=== PATIENT | male | born 1945 | race Caucasian/White ===

== ENCOUNTER → 2016-07-15 | Outpatient (CLI) | payer MEDICARE, BC ==
[2016-07-15 08:05] LABS: Basophils % (A) 0 %; CH 32.5; CHCM 36.8; Eosinophils # (A) 0.2 k/uL (0-0.7); Eosinophils % (A) 4 %; HDW 2.63; HGB 15.1 gm/dL (13.0-17.5); Luc # (Auto) 0.13; Luc % (Auto) 2; Lymphocytes % (A) 18 %; MCH 31.1 pg (25.0-35.0); MCHC 35.1 g/dL (31.0-37.0); MCV 88.6 fL (80.0-100.0); Mean Platelet Volume 6.7; Monocytes # (A) 0.3 k/uL (0-1.0); Monocytes % (A) 6 %; Neutrophils # (A) 3.9 k/uL (1.3-7.7); Neutrophils % (A) 69 %; RBC 4.85 m/uL (4.30-5.90); RDW 12.7 % (11.5-15.5); WBC 5.6 k/uL (3.8-10.6); WBC (Perox) 5.68
[2016-07-15 08:21] LABS: ALT 25 U/L (21-72); AST 26 U/L (17-59); Alkaline Phosphatase 44 U/L (38-126); Anion Gap 9 mmol/L; Blood Urea Nitrogen 17 mg/dL (9-20); Carbon Dioxide 28 mmol/L (22-30); Chloride 99 mmol/L (98-107); Cholesterol 141 mg/dL (<200); Glucose 98 mg/dL (74-99); HDL Cholesterol 41 mg/dL (40-60); Non-African American GFR(MDRD) >60 (>60 ml/min/1.73 sqM); Sodium 136 mmol/L (137-145); Total Bilirubin 1.1 mg/dL (0.2-1.3); Total Protein 6.9 g/dL (6.3-8.2); Triglycerides 95 mg/dL (<150)
[2016-07-15 11:58] LABS: Hemoglobin A1C 5.6 % (4.2-6.1)
== END ==
LOC: LABWHC1 07:40
PROVIDERS: ATTEND Internal Medicine
DX: E78.5 Hyperlipidemia, unspecified (principal); I10 Essential (primary) hypertension
CPT/HCPCS: 36415; 80053; 80061; 83036; 84439; 84443; 85025

== ENCOUNTER → 2017-10-15 | Outpatient (CLI) | payer MEDICARE, BC ==
[2017-10-15 14:49] LABS: Potassium 4.4 mmol/L (3.5-5.1)
== END | disposition home or self-care (01) ==
LOC: LABWHC1 14:09
PROVIDERS: ATTEND Internal Medicine Interventional Cardiology
DX: I10 Essential (primary) hypertension (principal)
CPT/HCPCS: 36415; 80051; 82565; 84520

== ENCOUNTER → 2018-02-23 | Outpatient (CLI) | payer MEDICARE, BC ==
--- NOTE | 2018-02-23 14:29 | US ---
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 F/U previous GLAND SIZE: Right Lobe: 5.4 x 1.5 x 1.9 cm Overall Parenchyma: homogenous Left Lobe: 5.2 x 1.4 x 1.5 cm Overall Parenchyma: homogeneous Isthmus Thickness: 0.5 cm NODULES RIGHT: # of nodules measured on right: 2 1. 0.9 X 0.9 x 0.9 cm isoechoic solid nodule at the lower pole with poorly defined margins; This n odule is wider than tall and shows intranodular vascularity. Prior size: 0.9 x 0.7 x 0.9 cm 2. 0.7 X 0.4 x 0.7 cm isoechoic solid nodule at the mid pole with poorly defined margins; This nodu le is wider than tall and shows intranodular vascularity. Prior size: 0.6 x 0.4 x 0.6 cm LEFT: # of nodules measured on left: 1 1. 0.7 X 0.4 x 0.6 cm isoechoic solid nodule at the upper pole with poorly defined margins; This n odule is wider than tall and shows intranodular vascularity. Prior size: 0.8 x 0.4 x 0.6 cm ISTHMUS: # of nodules measured in the isthmus: 1 1. 0.6 X 0.3 x 0.5 cm isoechoic solid nodule with poorly defined margins; This nodule is wider than tall and shows intranodular vascularity. Prior size: 0.5 x 0.8 x 0.4 cm Bilateral neck scanned, no evidence of lymphadenopathy. Sub-centimeter nodules bilaterally as seen on prior exam. IMPRESSION: Multiple subcentimeter thyroid nodules are stable given differences in technique. Correlate for thyro megaly.
[2018-02-23 14:37] LABS: Basophils % (A) 0 %; Eosinophils # (A) 0.1 k/uL (0-0.7); Eosinophils % (A) 1 %; HCT 42.4 % (39.0-53.0); HGB 14.8 gm/dL (13.0-17.5); Lymphocytes % (A) 14 %; MCH 31.7 pg (25.0-35.0); MCV 90.6 fL (80.0-100.0); Mean Platelet Volume 6.4; Monocytes # (A) 0.4 k/uL (0-1.0); Monocytes % (A) 6 %; Neutrophils # (A) 5.3 k/uL (1.3-7.7); Neutrophils % (A) 77 %; Platelet Count 206 k/uL (150-450); RBC 4.68 m/uL (4.30-5.90); WBC 6.9 k/uL (3.8-10.6)
[2018-02-23 14:52] LABS: Albumin 3.9 g/dL (3.5-5.0); Calcium 9.3 mg/dL (8.4-10.2); Potassium 3.9 mmol/L (3.5-5.1); Total Bilirubin 0.5 mg/dL (0.2-1.3); Total Protein 6.5 g/dL (6.3-8.2)
== END | disposition home or self-care (01) ==
LOC: RADUSWWP 13:24
PROVIDERS: ATTEND Internal Medicine Endocrinology, Diabetes & Metabolism
DX: E04.2 Nontoxic multinodular goiter (principal); E29.1 Testicular hypofunction; Z01.812 Encounter for preprocedural laboratory examination
CPT/HCPCS: 36415; 76536; 80053; 84403; 84439; 84443; 85025

== ENCOUNTER → 2018-04-08 | Outpatient (CLI) | payer MEDICARE, BC ==
[2018-04-08 15:51] LABS: Anion Gap 9.1 mmol/L (4.00-12.00); Calcium 9.2 mg/dL (8.7-10.3); Carbon Dioxide 26.9 mmol/L (21.6-31.8); Potassium 4.2 mmol/L (3.5-5.5)
== END | disposition home or self-care (01) ==
LOC: LABWHC1 09:45
PROVIDERS: ATTEND Nurse Practitioner Adult Health
DX: I10 Essential (primary) hypertension (principal)
CPT/HCPCS: 36415; 80048

== ENCOUNTER → 2018-06-23 | Outpatient (CLI) | payer MEDICARE, BC ==
--- NOTE | 2018-06-23 11:44 | FL ---
EXAMINATION TYPE: FL barium swallow w video DATE OF EXAM: 06/23/2018 MODIFIED SWALLOW / DEGLUTITION STUDY CLINICAL HISTORY: Dysphagia. Patient feels food getting stuck. TECHNIQUE: Deglutition study is performed utilizing thin liquid barium, honey and nectar thick liqui d barium, barium thick applesauce, and barium coated cracker. A total of 1.38 minutes of fluoroscopic time was utilized during procedure. 266 fluoroscopic images were taken. COMPARISON: None. FINDINGS: The oral and pharyngeal phases show satisfactory initiation and propagation with all modali ties tested. Satisfactory mastication is seen with solid modalities tested. There is no evidence of penetration or aspiration with any modality tested. No significant pharyngeal residue was appreciate d. Note is made of moderate disc space narrowing and anterior spurs C4-C5 level causing mild mass effect along posterior wall of the proximal esophagus during swallowing without significant delay. There is advanced disc space narrowing possible some ossific fusion C5-C6 level. There is moderate to advance d disc space narrowing with moderate anterior spurring C6-C7 level incidentally noted. IMPRESSION: Normal deglutition study. Please refer to speech therapist notes for further details if necessary.
== END | disposition home or self-care (01) ==
LOC: RADFLMAIN 11:01
PROVIDERS: ATTEND Otolaryngology
DX: R13.10 Dysphagia, unspecified (principal)
CPT/HCPCS: 74230

== ENCOUNTER 2018-07-27 09:48 | Day surgery (SDC) | payer MEDICARE, BC ==
[2018-07-23 11:04] VITALS: BMI 27.5
[~2018-07-27 09:48] MED LIST: LACTATED RINGERS 1,000 ML IV SCH
[2018-07-27 10:15] VITALS: RESP 16; TEMP 98.3
[2018-07-27] MEDS ORDERED: LIDOCAINE 1% 20 ML VIAL (10MG/ML) FOR IV START INTRADERMA ONE (10:21)
[2018-07-27] MEDS ORDERED: LIDOCAINE 1% INJ 10MG/ML (20 ML MDV) ONE (11:06)
[2018-07-27] MEDS ORDERED: PROPOFOL 10 MG/ML 20 ML VIAL IV ONE (11:06)
--- NOTE | 2018-07-27 11:47 | P.PCN ---
Date of Procedure: 07/27/18 Procedure(s) Performed: Procedure: Esophagogastroduodenoscopy and biopsy. Preoperative diagnosis: Gastroesophageal reflux and swallowing issues. Postoperative diagnosis: 1. Sliding hiatal hernia with no definite esophagitis or complicated reflux disease. 2. Mild antral gastritis. 3. Biopsies obtained from the antrum and esophagus. Preparation and sedation: Was provided by anesthesia. Brief clinical history: The patient is 72-year-old male who has been having some issues with throat complaints and difficulties swallowing starting in . He had a modified barium swallow last month that showed narrowing of the disc space from C4 to C8 with anterior spurs at the level of C4-C5 with some mass effect on the esophagus but no delay in swallowing. The patient was not taking any medications for reflux for more than 2 years and started back in April. This evaluation is to assess for esophagitis, complicated reflux or other pathology. He had an upper endoscopy back in March 2015 because of reflux symptoms and intermittent dysphagia and throat complaints, and that showed small sliding hiatal hernia and mild antral gastritis. Biopsies from the esophagus back then showed focal features suggestive mild chronic esophagitis. Procedure: With the patient on his left lateral decubitus position and after informed consent and adequate sedation, I passed a Olympus-GIF H 190 video upper endoscope through the cricopharyngeus down the esophagus. GE junction was around 38-39 cm from the incisors and there was a small sliding hiatal hernia but no obvious esophagitis or complicated reflux disease. The endoscope was then passed into the stomach which was insufflated with air and inspected in detail including the retroflex view in the cardia. There was some mottling and erythema in the antrum but no ulcers or erosions. Pyloric channel did not show any ulcers. Duodenal bulb, post bulbar area and descending duodenum appeared within normal limits. I obtained biopsies from the antrum and esophagus then the endoscope was withdrawn. The patient tolerated the procedure well. Plan: The patient was reassured. Will await biopsy results. If he continues to be symptomatic and the biopsies do not give any additional insight into his problem, consideration can be given for a motility study and a 24-hour pH/impedance study to further evaluate for motility disorders or incompletely treated reflux disease. I'll keep you updated on his progress.
[2018-07-27 11:50] VITALS: BP 137/84; PULSE 59
== END 2018-07-27 12:45 | disposition home or self-care (01) ==
LOC: ORWHC2ENDO 09:48
DX: K29.50 Unspecified chronic gastritis without bleeding (principal); K21.9 Gastro-esophageal reflux disease without esophagitis; K44.9 Diaphragmatic hernia without obstruction or gangrene; R13.10 Dysphagia, unspecified; J45.909 Unspecified asthma, uncomplicated; I10 Essential (primary) hypertension; M19.90 Unspecified osteoarthritis, unspecified site; N40.0 Benign prostatic hyperplasia without lower urinary tract symptoms; Z85.828 Personal history of other malignant neoplasm of skin; E78.5 Hyperlipidemia, unspecified; Z79.82 Long term (current) use of aspirin; Z79.899 Other long term (current) drug therapy; Z88.8 Allergy status to other drugs, medicaments and biological substances
CPT/HCPCS: 88305; 43239; J2001; J2704

== ENCOUNTER → 2018-12-21 | Outpatient (CLI) | payer MEDICARE, BC ==
--- NOTE | 2018-12-21 13:06 | XR ---
Lumbar spine HISTORY: Spinal stenosis, back pain 3 views of the lumbar spine No comparisons There is multilevel spondylosis. Loss of disc height is present at intervertebral levels. Minimal ret rolisthesis grade 1 L5-S1, L3-4. Sclerosis present in the posterior elements of the lumbar spine. The re is elevation of lumbar vertebral body height and bone mineralization. Slight spinal curvature is n oted. Indeterminate focus of increased attenuation noted on the lateral exam could be related to gall stone. Vascular calcifications are present. IMPRESSION: Degenerative disc disease, facet arthropathy.
== END | disposition home or self-care (01) ==
LOC: RADXRMAIN 09:01
PROVIDERS: ATTEND Internal Medicine Geriatric Medicine
DX: M51.36 Other intervertebral disc degeneration, lumbar region (principal); M46.96 Unspecified inflammatory spondylopathy, lumbar region
CPT/HCPCS: 72100

== ENCOUNTER → 2019-03-08 | Outpatient (CLI) | payer MEDICARE, BC ==
--- NOTE | 2019-03-08 15:13 | US ---
EXAMINATION TYPE: US thyroid st tissue head/neck DATE OF EXAM: 03/08/2019 COMPARISON: US 2018 CLINICAL HISTORY: E04.2 Nontoxic multinodular goiter. Thyroid nodules, history of thyroid FNA GLAND SIZE: Right Lobe: 4.9 x 1.7 x 2.2 cm Overall Parenchyma: heterogenous Left Lobe: 4.9 x 1.5 x 1.5 cm Overall Parenchyma: heterogeneous Isthmus Thickness: 0.5 cm NODULES RIGHT: # of nodules measured on right: 2 1. 1.1 X 0.7 x 1.1 cm isoechoic solid nodule at the lower pole with poorly defined margins. This no dule is wider than tall and shows intranodular vascularity. Prior size: 0.9 x 0.9 x 0.9 cm 2. 0.7 X 0.5 x 0.7 cm hypoechoic solid nodule at the mid pole with poorly defined margins. This nodu le is wider than tall and shows intranodular vascularity. Prior size: 0.7 x 0.4 x 0.7 cm LEFT: # of nodules measured on left: 1 1. 0.7 X 0.5 x 0.8 cm isoechoic mixed nodule at the upper pole with poorly defined margins. This no dule is wider than tall and shows intranodular vascularity. Prior size: 0.7 x 0.4 x 0.6 cm ISTHMUS: # of nodules measured in the isthmus: 0 1. nodule seen on previous exam not seen on today's study Bilateral neck scanned, no evidence of lymphadenopathy. IMPRESSION: Heterogeneous gland with bilateral nodules described above.
[2019-03-08 15:21] LABS: T4, Free (Free Thyroxine) 0.93 ng/dL (0.78-2.19)
== END | disposition home or self-care (01) ==
LOC: RADUSWWP 13:58
PROVIDERS: ATTEND Internal Medicine Endocrinology, Diabetes & Metabolism
DX: E04.2 Nontoxic multinodular goiter (principal); E29.1 Testicular hypofunction
CPT/HCPCS: 36415; 76536; 84403; 84439; 84443

== ENCOUNTER → 2019-04-20 | Outpatient (CLI) | payer MEDICARE ==
--- NOTE | 2019-04-20 15:59 | US ---
EXAMINATION TYPE: US kidneys/renal and bladder DATE OF EXAM: 04/20/2019 COMPARISON: NONE CLINICAL HISTORY: Hematuria R31.9. Hematuria EXAM MEASUREMENTS: Right Kidney: 12.4 x 6.4 x 4.8 cm Left Kidney: 11.2 x 5.2 x 4.8 cm Right Kidney: multiple cystic areas with largest measuring 3.6 x 3.2 x 3.3cm at the mid right renal sinus region. Left Kidney: Mildly dilated renal pelvis Bladder: wnl Bilateral Jets seen: yes IMPRESSION: 1. Right Renal cysts. 2. Mild prominence of the left renal pelvis. This may be an extrarenal pelvis.
== END | disposition home or self-care (01) ==
LOC: RADUSWWP 14:43
PROVIDERS: ATTEND Internal Medicine Geriatric Medicine
DX: N28.1 Cyst of kidney, acquired (principal)
CPT/HCPCS: 76770

== ENCOUNTER → 2019-05-11 | Outpatient (CLI) | payer MEDICARE ==
--- NOTE | 2019-05-11 10:52 | CT ---
EXAMINATION TYPE: CT abdomen wo/w con DATE OF EXAM: 05/11/2019 COMPARISON: Ultrasound 04/20/2019 HISTORY: 73-year-old male Right renal cyst TECHNIQUE: Contiguous axial scanning of the abdomen before and after administration of 100 ml Isovue 300 IV contrast. Delayed images through the kidneys and coronal/sagittal reconstructions performed. CT DLP: 1871 mGycm Automated exposure control for dose reduction was used. FINDINGS: Heart normal size without pericardial effusion. Extensive three-vessel coronary artery calcifications are present. Lung bases clear without pleural effusion. No focal liver lesion or biliary ductal dilatation. Portal venous system is patent. 2.0 cm gallstone. No abnormal gallbladder distention.. Adrenal glands, spleen, and pancreas appear within normal limits. Bilateral renal hypodensities are present. The largest on the right measures 3.4 cm compatible with a cyst. Additional right-sided renal cortical cysts are present measuring up to 1.8 cm. Some lesions a re very small and too small fractured CT characterization but also likely represent renal cortical cy sts. One particular lesion lateral lower pole left kidney measures 1.1 cm and shows attenuation of 66 Houn sfield units on the noncontrast study. No appreciable change in density on postcontrast series. A hem orrhagic cyst is suspected. Six-month follow-up CT can confirm stability. Symmetric excretion of cont rast from the kidneys. No dilated small bowel, free fluid, or free air. No mesenteric or retroperitoneal lymphadenopathy. Mild to moderate atherosclerotic calcifications infrarenal abdominal aorta without aneurysm. Normal appendix. Moderate stool burden. Redundant sigmoid colon. Left-sided colonic diverticulosis. N o pericolonic inflammatory change. Pelvis is not imaged. 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 Additional degenerative disc disease and fac et arthropathy mid to lower lumbar spine. IMPRESSION: 1. BILATERAL RENAL CORTICAL CYSTS MEASURING UP TO 3.4 CM ON THE RIGHT. MANY OF THE LESIONS ARE VERY S MALL AND TOO SMALL FOR ACCURATE CT CHARACTERIZATION AND ALSO LIKELY REPRESENT BENIGN RENAL CORTICAL C YSTS. 2. SIX-MONTH FOLLOW-UP CT IS RECOMMENDED FOR A 1.1 CM INDETERMINATE LESION LATERAL LOWER POLE LEFT KI DNEY, SUSPECTED HEMORRHAGIC CYST. 3. CAD, 2.0 CM GALLSTONE, AND SCATTERED LEFT-SIDED COLONIC DIVERTICULOSIS.
== END | disposition home or self-care (01) ==
LOC: RADCTMAIN 07:32
PROVIDERS: ATTEND Urology
DX: N28.1 Cyst of kidney, acquired (principal); K80.20 Calculus of gallbladder without cholecystitis without obstruction; K57.30 Diverticulosis of large intestine without perforation or abscess without bleeding; Z88.8 Allergy status to other drugs, medicaments and biological substances
CPT/HCPCS: 82565; 84520; 74170; 36415; Q9967 ×2

== ENCOUNTER → 2019-06-09 | Outpatient (CLI) | payer MEDICARE ==
--- NOTE | 2019-06-09 08:58 | US ---
EXAMINATION TYPE: US abdomen complete DATE OF EXAM: 06/09/2019 COMPARISON: NONE CLINICAL HISTORY: Gallstone of bile duct K80.51. recent CT showed GB stone, h/o renal cysts, patient has no symptoms EXAM MEASUREMENTS: Liver Length: 15.8 cm Gallbladder Wall: 0.2 cm CBD: 0.4 cm Spleen: 9.8 cm Right Kidney: 12.9 x 7.0 x 4.9 cm Left Kidney: 10.0 x 4.3 x 5.7 cm *overlying bowel gas limits exam Pancreas: not seen due to bowel gas Liver: intercostal imaging due to high placement within ribcage, wnl Gallbladder: 2.2cm mobile stone seen Evidence for sonographic Fisher's sign: no CBD: wnl Spleen: wnl Right Kidney: multiple cysts, largest = 3.9cm Left Kidney: wnl Upper IVC: wnl Abd Aorta: limited views due to bowel gas IMPRESSION: 1. Multiple right renal cysts. 2. Gallstone. 3. Limitation due to bowel gas.
== END | disposition home or self-care (01) ==
LOC: RADUSWWP 07:58
PROVIDERS: ATTEND Internal Medicine Geriatric Medicine
DX: N28.1 Cyst of kidney, acquired (principal); K80.20 Calculus of gallbladder without cholecystitis without obstruction
CPT/HCPCS: 76700

== ENCOUNTER → 2019-09-06 | Outpatient (CLI) | payer MEDICARE | END | disposition home or self-care (01) | LOC: LABWHC1 12:32 | PROVIDERS: ATTEND Surgery Plastic and Reconstructive Surgery | DX: Z11.59 Encounter for screening for other viral diseases (principal) | CPT/HCPCS: 87635 ==

== ENCOUNTER 2019-09-08 10:43 | Day surgery (SDC) | payer MEDICARE ==
[2019-09-06 13:48] VITALS: BMI 28.5
--- NOTE | 2019-09-07 22:09 | P.GSHP ---
History of Present Illness H&P Date: 09/08/19 CHIEF COMPLAINT: Cholecystitis HISTORY OF PRESENT ILLNESS: The patient is a 73-year-old male who presents with history of epigastric including right upper quadrant abdominal pain. He underwent diagnostic studies for the gallbladder. Separately his clinical picture was consistent with cholecystitis. Now he presents for surgical intervention. PAST MEDICAL HISTORY: Please see list PAST SURGICAL HISTORY: Please see list MEDICATIONS: Please see list ALLERGIES:Please see list SOCIAL HISTORY: Please see list FAMILY HISTORY: Pertinent for gallbladder disease REVIEW OF ORGAN SYSTEMS: CONSTITUTIONAL: No reports of fevers or chills. PHYSICAL EXAM: VITAL SIGNS: Afebrile vital signs stable GENERAL: Well-developed pleasant male in no acute distress. HEENT: No scleral icterus. Extraocular movements grossly intact. Moist buccal mucosa. NECK: Supple without lymphadenopathy. CHEST: Unlabored respirations. Equal bilateral excursions. CARDIOVASCULAR: Regular rate regular rhythm rhythm. Distal 2+ pulses. ABDOMEN: Soft, nondistended. Tender along the epigastrium and right upper quadrant. MUSCULOSKELETAL: No clubbing, cyanosis, or edema. NEURO : No focal or lateralizing signs. Cranial nerves II-12 within normal limits. PSYCH: Alert and oriented to person, place and time. SKIN: Well perfused. Good skin turgor. ASSESSMENT: 1. Epigastric and right upper quadrant abdominal pain 2. Chronic cholecystitis PLAN: 1. Will need a robotic cholecystectomy possible open. Benefits and risks were described. 2. Heparin for DVT prophylaxis 5000 units. 3. Antibiotic prophylaxis. Past Medical History Past Medical History: Asthma, Cancer, GERD/Reflux, Hyperlipidemia, Hypertension, Osteoarthritis (OA), Prostate Disorder, Skin Disorder Additional Past Medical History / Comment(s): hiatal hernia, THYROID NODULES., HX SKIN CANCER , rosacea, cyst on kidney, History of Any Multi-Drug Resistant Organisms: None Reported Past Surgical History: Orthopedic Surgery, Prostate Surgery Additional Past Surgical History / Comment(s): TURP, colonoscopy , EGD., arthroscopy rt knee, skin cancer removed from neck and face Past Anesthesia/Blood Transfusion Reactions: Motion Sickness Smoking Status: Never smoker - Past Family History Mother Family Medical History: No Reported History Medications and Allergies Home Medications Medication Instructions Recorded Confirmed Type Aspirin 81 mg PO DAILY 03/20/15 09/06/19 History Vit A/Vit C/Vit E/Zinc/Copper 1 cap PO BID 03/20/15 09/06/19 History [ICAPS SOFTGEL] Atorvastatin Calcium [Lipitor] 10 mg PO HS 04/30/18 09/06/19 History Cholecalciferol (Vitamin D3) 2,000 unit PO HS 04/30/18 09/06/19 History [Vitamin D3] Docusate [Colace] 100 mg PO BID PRN 04/30/18 09/06/19 History Losartan/Hydrochlorothiazide 1 tab PO DAILY 04/30/18 09/06/19 History [Losartan-Hctz 100-25 mg Tab] Spironolactone 25 mg PO DAILY 04/30/18 09/06/19 History Ubidecarenone [Co Q-10] 100 mg PO DAILY 04/30/18 09/06/19 History ALPRAZolam [Xanax] 0.25 mg PO DAILY PRN 07/23/18 09/06/19 History Albuterol Sulfate [Proair Hfa] 1 - 2 puff INHALATION Q6HR PRN 07/23/18 09/06/19 History L.acidoph,Paracasei, B.lactis 1 each PO HS 07/23/18 09/06/19 History [Probiotic] Montelukast [Singulair] 10 mg PO DAILY 07/23/18 09/06/19 History Olopatadine HCl 1 applic BOTH EYES DAILY 07/23/18 09/06/19 History Omeprazole [PriLOSEC] 20 mg PO BID PRN 07/23/18 09/06/19 History Polyethylene Glycol 3350 [Miralax] 17 gm PO DAILY 09/06/19 09/06/19 History Allergies Allergy/AdvReac Type Severity Reaction Status Date / Time amlodipine besylate Allergy Rash/Hives Verified 09/06/19 13:33 [From Norvasc] hydralazine AdvReac Unknown Rash/Hives, Verified 09/06/19 13:33 Upset Stomach
[~2019-09-08 10:43] MED LIST changes: +ACETAMINOPHEN TAB 500 MG TAB PO STA; +DEXAMETHASONE SOD PHOSPHATE 10 MG/ML 1 ML VIAL IV ONE; +GABAPENTIN 300 MG CAP PO STA; +HEPARIN SODIUM,PORCINE 5,000 UNIT/ML 1 ML VIAL SQ ONE; +HYDROmorphone 0.5 MG/0.5 ML SYRINGE IVP PRN; +INDOCYANINE GREEN 25 MG VIAL IV STA; +ONDANSETRON 4 MG/2 ML VIAL IVP ONE; +SCOPOLAMINE 1.5MG/72HR PATCH TRANSDERM ONE; +TAMSULOSIN 0.4 MG CAP.ER.24H PO STA
[2019-09-08 11:50] LABS: Basophils % (A) 0 %; Eosinophils # (A) 0.1 k/uL (0-0.7); Eosinophils % (A) 3 %; HCT 42.8 % (39.0-53.0); HGB 14.9 gm/dL (13.0-17.5); Lymphocytes # (A) 1.1 k/uL (1.0-4.8); Lymphocytes % (A) 21 %; MCH 31.6 pg (25.0-35.0); MCHC 34.9 g/dL (31.0-37.0); MCV 90.5 fL (80.0-100.0); Monocytes # (A) 0.3 k/uL (0-1.0); Monocytes % (A) 6 %; Neutrophils # (A) 3.7 k/uL (1.3-7.7); Neutrophils % (A) 68 %; Platelet Count 238 k/uL (150-450); RBC 4.73 m/uL (4.30-5.90); RDW 12.4 % (11.5-15.5); WBC 5.4 k/uL (3.8-10.6)
[2019-09-08 12:09] LABS: ALT 16 U/L (4-49); AST 30 U/L (17-59); African American GFR (CKD) >90 (>60 ml/min/1.73 sqM); Albumin 4.3 g/dL (3.5-5.0); Alkaline Phosphatase 53 U/L (38-126); Anion Gap 9 mmol/L; Blood Urea Nitrogen 17 mg/dL (9-20); Calcium 9.3 mg/dL (8.4-10.2); Carbon Dioxide 26 mmol/L (22-30); Chloride 99 mmol/L (98-107); Glucose 100 mg/dL (74-99); Non-African American GFR(CKD) 84 (>60 ml/min/1.73 sqM); Potassium 4.4 mmol/L (3.5-5.1); Sodium 134 mmol/L (137-145); Total Protein 7.2 g/dL (6.3-8.2)
[2019-09-08] MEDS ORDERED: MIDAZOLAM 2 MG/2 ML VIAL IV ONE (12:59)
--- NOTE | 2019-09-08 13:13 | P.HPADDEND ---
H&P Addendum H&P Addendum Date: 09/08/19 Benefits and risks described for robotic cholecystectomy. Patient has history of gallstones
[2019-09-08] MEDS ORDERED: LIDOCAINE 1%-EPI 1:100,000 20 ML VIAL SQ ONE ×2 (14:46→15:16)
[2019-09-08] MEDS ORDERED: GLYCOPYRROLATE 0.2 MG/ML 2 ML VIAL ONE (14:53)
[2019-09-08] MEDS ORDERED: LIDOCAINE 1% INJ 10MG/ML (20 ML MDV) ONE (14:53)
[2019-09-08] MEDS ORDERED: NEOSTIGMINE 1 MG/ML 10 ML VIAL ONE (14:53)
[2019-09-08] MEDS ORDERED: SUCCINYLCHOLINE CHLORIDE 100 MG/5 ML SYR IV ONE (14:53)
[2019-09-08] MEDS ORDERED: ROCURONIUM BROMIDE 10 MG/ML 5 ML VIAL IV ONE (14:53)
[2019-09-08] MEDS ORDERED: fentaNYL (PF) 50 MCG/ML 2 ML AMP ONE (14:53)
[2019-09-08] MEDS ORDERED: ePHEDrine SULFATE/0.9% NACL/PF 50 MG/5 ML SYRINGE IV ONE (14:53)
[2019-09-08] MEDS ORDERED: MIDAZOLAM 2 MG/2 ML VIAL ONE (14:53)
[2019-09-08] MEDS ORDERED: PROPOFOL 10 MG/ML 20 ML VIAL IV ONE (14:53)
[2019-09-08] MEDS: LACTATED RINGERS 1,000 ML IV ONE ×2 (15:34→17:00)
--- NOTE | 2019-09-08 16:04 | P.OP ---
Date of Procedure: 09/08/19 Description of Procedure: SURGEON: ELYSSA CHAPMAN MD PREOPERATIVE DIAGNOSES: 1. Symptomatic gallstones 2. Hypertensive heart disease with heart failure 3. Obstructive uropathy 4. Gastroesophageal reflux disease 5. Asthma 6. Hyperlipidemia POSTOPERATIVE DIAGNOSES: 1. Symptomatic gallstones 2. Hypertensive heart disease with heart failure 3. Obstructive uropathy 4. Gastroesophageal reflux disease 5. Asthma 6. Hyperlipidemia OPERATION: Robotic-assisted da Lewis Xi laparoscopic cholecystectomy, multiport with FIREFLY ESTIMATED BLOOD LOSS: 5 mL. SPECIMENS REMOVED: Gallbladder. COMPLICATIONS: None. Operative Findings: 1. Large 1 cm gallstone with chronic cholecystitis INDICATIONS: The patient is a 73-year-old male who presents with gallstones. Surgical intervention with a laparoscopic cholecystectomy was described. Robotic assisted laparoscopic approach was described. Benefits and risks of the procedure including but not limited to bleeding, infection, injury to the biliary tree was described. Informed consent was obtained. DESCRIPTION OF PROCEDURE: Patient was brought to the operating room, placed in supine position. After general induction, the abdomen had been prepped and draped in standard sterile fashion. The robotic da Lewis XI system was primed. After a timeout protocol was performed, the patient had been prepped and draped in standard sterile fashion. The patient was injected with indocyanine green. A 5 mm 0 degrees laparoscopic trocar entry was performed along the left upper quadrant. The abdomen insufflated to 15 mmHg pressure which was tolerated well. Diagnostic laparoscopy demonstrated no injury to bowel viscera or mesentery. The liver surface was unremarkable. Next, two 8 mm robotic ports were placed along the right upper abdomen. The camera 8-mm port was maintained along the epigastrium. Another 8 mm port was placed along the left upper abdominal wall after exchanging the 5 mm port. Please note that the ports were placed at least 10 to 15 cm away from the target anatomy of the gallbladder. The robot was docked along the left lateral abdomen. The patient was repositioned in reverse Trendelenburg position. Using a grasper for arm 3, a grasper for arm 4, including hook cautery for arm 1, the robotic system was docked and primed as described. Instruments were interchanged by the hotel assistant general manager including hook cautery, Bovie cautery and clip appliers. I had sat at the console. The gallbladder fundus was retracted over the dome of the liver. Initial attention was brought to the infundibulum including cystic lymph node. Initial dissection was performed over the cystic lymph node at the infundibulum using hook cautery. The infundibulum was retracted laterally to expose the cystic duct away from the common bile duct. The cystic duct including the cystic artery were dissected free from its surrounding tissue. FIREFLY was used to identify the cystic artery and cystic structures. A critical view of safety was obtained. Large PLASTIC clips were used throughout the entire case. Using a clip electrician telephone, 2 clips were placed along the cystic duct away from the common bile duct. The cystic duct was divided between clips.. Next, the cystic artery was similarly clipped and cauterized. Electro-Bovie cautery was used to remove the gallbladder from the hepatic fossa. Hemostasis was checked and found to be adequate. The robot was undocked. I re-scrubbed into the case. Using a 10 mm Endo Catch bag via the left upper quadrant incision, the specimen was removed from the abdominal cavity. All pneumoperitoneum instruments were evacuated from the abdominal cavity. The incisions were reapproximated using 4-0 Monocryl in an interrupted subcuticular fashion. Fascial defects were less than 8 mm in size. Please note along the trocar sites, local anesthetic was placed as a field block prior to insertion of all instruments. Liquid glue was applied to the skin. At the end of the procedure needle, sponge, and instrument count had been verified correct by the surgical pathologist. The patient was transferred to postanesthesia care unit in stable condition. Intraoperative films were shared with the patient's family who were pleased with the level of care. Plan - Discharge Summary Discharge Rx Participant: No New Discharge Prescriptions: New Tamsulosin [Flomax] 0.4 mg PO DAILY #5 cap.er.24h Ibuprofen [Motrin] 600 mg PO Q8HR PRN #30 tab PRN Reason: Pain Acetaminophen Tab [Tylenol Tab] 1,000 mg PO Q6HR PRN #30 tablet Continue Vit A/Vit C/Vit E/Zinc/Copper [ICAPS SOFTGEL] 1 cap PO BID Aspirin 81 mg PO DAILY Docusate [Colace] 100 mg PO BID PRN PRN Reason: Constipation Losartan/Hydrochlorothiazide [Losartan-Hctz 100-25 mg Tab] 1 tab PO DAILY Spironolactone 25 mg PO DAILY Ubidecarenone [Co Q-10] 100 mg PO DAILY Cholecalciferol (Vitamin D3) [Vitamin D3] 2,000 unit PO HS Atorvastatin Calcium [Lipitor] 10 mg PO HS Montelukast [Singulair] 10 mg PO DAILY Albuterol Sulfate [Proair Hfa] 1 - 2 puff INHALATION Q6HR PRN PRN Reason: Shortness Of Breath ALPRAZolam [Xanax] 0.25 mg PO DAILY PRN PRN Reason: Anxiety Omeprazole [PriLOSEC] 20 mg PO BID PRN PRN Reason: gerd Olopatadine HCl 1 applic BOTH EYES DAILY L.acidoph,Paracasei, B.lactis [Probiotic] 1 each PO HS Polyethylene Glycol 3350 [Miralax] 17 gm PO DAILY Discharge Medication List Aspirin 81 mg PO DAILY 03/20/15 [History] Vit A/Vit C/Vit E/Zinc/Copper [ICAPS SOFTGEL] 1 cap PO BID 03/20/15 [History] Atorvastatin Calcium [Lipitor] 10 mg PO HS 04/30/18 [History] Cholecalciferol (Vitamin D3) [Vitamin D3] 2,000 unit PO HS 04/30/18 [History] Docusate [Colace] 100 mg PO BID PRN 04/30/18 [History] Losartan/Hydrochlorothiazide [Losartan-Hctz 100-25 mg Tab] 1 tab PO DAILY 04/30/18 [History] Spironolactone 25 mg PO DAILY 04/30/18 [History] Ubidecarenone [Co Q-10] 100 mg PO DAILY 04/30/18 [History] ALPRAZolam [Xanax] 0.25 mg PO DAILY PRN 07/23/18 [History] Albuterol Sulfate [Proair Hfa] 1 - 2 puff INHALATION Q6HR PRN 07/23/18 [History] L.acidoph,Paracasei, B.lactis [Probiotic] 1 each PO HS 07/23/18 [History] Montelukast [Singulair] 10 mg PO DAILY 07/23/18 [History] Olopatadine HCl 1 applic BOTH EYES DAILY 07/23/18 [History] Omeprazole [PriLOSEC] 20 mg PO BID PRN 07/23/18 [History] Polyethylene Glycol 3350 [Miralax] 17 gm PO DAILY 09/06/19 [History] Acetaminophen Tab [Tylenol Tab] 1,000 mg PO Q6HR PRN #30 tablet 09/08/19 [Rx] Ibuprofen [Motrin] 600 mg PO Q8HR PRN #30 tab 09/08/19 [Rx] Tamsulosin [Flomax] 0.4 mg PO DAILY #5 cap.er.24h 09/08/19 [Rx] Follow up Appointment(s)/Referral(s): Elyssa Chapman MD [STAFF PHYSICIAN] - 09/13/19 Patient Instructions/Handouts: *Surgery [facility] - (Anesthesia) Discharge Instructions Outpatient Surgery, Low Fat Diet (DC), Laparoscopic Cholecystectomy (DC) Activity/Diet/Wound Care/Special Instructions: No lifting over 10 pounds in until September 15August shower. No bath tub soaks until September 15 Diet as tolerated Use Tylenol and ibuprofen or Aleve scheduled for the next 24-48 hours for best pain relief. Use ice along incisions for the today to prevent swelling. IF UNABLE TO V OID IN [address] Discharge Disposition: HOME SELF-CARE
[2019-09-08 16:06] VITALS: TEMP 97.1
[2019-09-08 16:10] LABS: Glucose,Whole Blood 183 mg/dL (75-99)
[2019-09-08] MEDS ORDERED: ONDANSETRON 4 MG/2 ML VIAL IVP ONE (18:00)
[2019-09-08 18:55] VITALS: BP 114/67; PULSE 68; RESP 20
== END 2019-09-08 20:16 | disposition home or self-care (01) ==
LOC: OR 10:43
PROVIDERS: ATTEND Surgery Plastic and Reconstructive Surgery
DX: K80.10 Calculus of gallbladder with chronic cholecystitis without obstruction (principal); I11.0 Hypertensive heart disease with heart failure; I50.9 Heart failure, unspecified; N13.9 Obstructive and reflux uropathy, unspecified; K21.9 Gastro-esophageal reflux disease without esophagitis; J45.909 Unspecified asthma, uncomplicated; E78.2 Mixed hyperlipidemia; I25.10 Atherosclerotic heart disease of native coronary artery without angina pectoris; R01.1 Cardiac murmur, unspecified; M19.90 Unspecified osteoarthritis, unspecified site; Z90.79 Acquired absence of other genital organ(s); L71.9 Rosacea, unspecified; K44.9 Diaphragmatic hernia without obstruction or gangrene; E04.1 Nontoxic single thyroid nodule; N28.1 Cyst of kidney, acquired; K08.89 Other specified disorders of teeth and supporting structures; Z88.8 Allergy status to other drugs, medicaments and biological substances; Z79.899 Other long term (current) drug therapy; Z79.82 Long term (current) use of aspirin; Z79.52 Long term (current) use of systemic steroids; Z79.2 Long term (current) use of antibiotics; Z87.891 Personal history of nicotine dependence; Z85.828 Personal history of other malignant neoplasm of skin; Z98.890 Other specified postprocedural states; Z87.898 Personal history of other specified conditions; Z82.49 Family history of ischemic heart disease and other diseases of the circulatory system; Z83.79 Family history of other diseases of the digestive system
CPT/HCPCS: 88304; 80053; 85025; 47562; J2250; J1644; J1100; J2710; J0690; J2405; J2001; J3010; J0330; J2704; J1170

== ENCOUNTER 2019-09-12 22:52 | Emergency (ER) | payer MEDICARE ==
[2019-09-12 22:59] VITALS: RESP 18
--- NOTE | 2019-09-12 23:37 | ED ---
Abdominal Pain HPI - General Chief Complaint: Abdominal Pain Stated Complaint: abd pain Time Seen by Provider: 09/12/19 23:26 Source: EMS Mode of arrival: EMS Limitations: no limitations - History of Present Illness Initial Comments: This patient is a 73-year-old man who presents with low abdominal pain that he believes is due to constipation. He relates that he had a laparoscopic cholecystectomy on Thursday with Dr. Chapman and that he was not really having any abdominal pain following that. He states that he does have history of constipation. His last bowel movement was on Thursday and he states that it seemed to be less than adequate. He has been having cramping lower abdominal pain and urge to defecate but not able to pass any stool. He also is complaining of some perianal discomfort. There is no nausea or vomiting. No upper abdominal pain. No chest or back pain. No fever or chills. No leg pain or swelling MD Complaint: abdominal pain -: days(s) Location: diffuse, suprapubic Radiation: none Severity: moderate Quality: cramping, fullness Consistency: constant Improves With: nothing Worsens With: nothing Associated Symptoms: constipation - Related Data Home Medications Medication Instructions Recorded Confirmed Aspirin 81 mg PO DAILY 03/20/15 09/08/19 Vit A/Vit C/Vit E/Zinc/Copper 1 cap PO BID 03/20/15 09/08/19 [ICAPS SOFTGEL] Atorvastatin Calcium [Lipitor] 10 mg PO HS 04/30/18 09/08/19 Cholecalciferol (Vitamin D3) 2,000 unit PO HS 04/30/18 09/08/19 [Vitamin D3] Docusate [Colace] 100 mg PO BID PRN 04/30/18 09/08/19 Losartan/Hydrochlorothiazide 1 tab PO DAILY 04/30/18 09/08/19 [Losartan-Hctz 100-25 mg Tab] Spironolactone 25 mg PO DAILY 04/30/18 09/08/19 Ubidecarenone [Co Q-10] 100 mg PO DAILY 04/30/18 09/08/19 ALPRAZolam [Xanax] 0.25 mg PO DAILY PRN 07/23/18 09/08/19 Albuterol Sulfate [Proair Hfa] 1 - 2 puff INHALATION Q6HR PRN 07/23/18 09/08/19 L.acidoph,Paracasei, B.lactis 1 each PO HS 07/23/18 09/08/19 [Probiotic] Montelukast [Singulair] 10 mg PO DAILY 07/23/18 09/08/19 Olopatadine HCl 1 applic BOTH EYES DAILY 07/23/18 09/08/19 Omeprazole [PriLOSEC] 20 mg PO BID PRN 07/23/18 09/08/19 Polyethylene Glycol 3350 [Miralax] 17 gm PO DAILY 09/06/19 09/08/19 Previous Rx's Medication Instructions Recorded Acetaminophen Tab [Tylenol Tab] 1,000 mg PO Q6HR PRN #30 tablet 09/08/19 Ibuprofen [Motrin] 600 mg PO Q8HR PRN #30 tab 09/08/19 Tamsulosin [Flomax] 0.4 mg PO DAILY #5 cap.er.24h 09/08/19 Allergies Allergy/AdvReac Type Severity Reaction Status Date / Time amlodipine besylate Allergy Rash/Hives Verified 09/12/19 22:59 [From Norvas] hydralazine AdvReac Unknown Rash/Hives, Verified 09/12/19 22:59 Upset Stomach Review of Systems ROS Statement: Those systems with pertinent positive or pertinent negative responses have been documented in the HPI. ROS Other: All systems not noted in ROS Statement are negative. Constitutional: Denies: fever, chills Respiratory: Denies: cough, dyspnea Cardiovascular: Denies: chest pain, orthopnea Gastrointestinal: Reports: as per HPI, abdominal pain, constipation. Denies: nausea, vomiting, diarrhea, melena, hematochezia Genitourinary: Denies: dysuria, hematuria Musculoskeletal: Denies: back pain Skin: Denies: rash Neurological: Denies: headache, weakness, numbness Past Medical History Past Medical History: Asthma, Cancer, GERD/Reflux, Hyperlipidemia, Hypertension, Osteoarthritis (OA), Prostate Disorder, Skin Disorder Additional Past Medical History / Comment(s): hiatal hernia, THYROID NODULES., HX SKIN CANCER , rosacea, cyst on kidney, History of Any Multi-Drug Resistant Organisms: None Reported Past Surgical History: Cholecystectomy, Orthopedic Surgery, Prostate Surgery Additional Past Surgical History / Comment(s): TURP, colonoscopy , EGD., arthroscopy rt knee, skin cancer removed from neck and face Past Anesthesia/Blood Transfusion Reactions: Motion Sickness Past Psychological History: No Psychological Hx Reported Smoking Status: Never smoker Past Alcohol Use History: Rare Past Drug Use History: None Reported - Past Family History Mother Family Medical History: No Reported History General Exam Limitations: no limitations General appearance: alert, in no apparent distress Head exam: Present: atraumatic, normocephalic Eye exam: Present: normal appearance. Absent: scleral icterus, conjunctival injection ENT exam: Present: normal oropharynx Neck exam: Present: normal inspection Respiratory exam: Present: normal lung sounds bilaterally. Absent: respiratory distress, wheezes, rales, rhonchi, stridor Cardiovascular Exam: Present: regular rate, normal rhythm, normal heart sounds. Absent: systolic murmur, diastolic murmur, rubs, gallop GI/Abdominal exam: Present: soft, other (The patient's post surgical incisions have a normal appearance. They are clean dry and intact. No discharge. No abnormal erythema or warmth. No tenderness). Absent: distended, tenderness, guarding, rebound, rigid, mass, pulsatile mass Rectal exam: Present: normal inspection, normal rectal tone, fecal impaction. Absent: bloody stool, hemorrhoids, mass, tenderness Neurological exam: Present: alert Skin exam: Present: warm, dry, intact, normal color. Absent: rash Course Vital Signs 09/12/19 22:57 Temperature 99.3 F Pulse Rate 78 Respiratory 18 Rate Blood Pressure 132/70 O2 Sat by Pulse 96 Oximetry Medical Decision Making - Medical Decision Making Patient is administered soapsuds enema, passed a large amount of stool and did have relief of symptoms. Disposition Clinical Impression: Abdominal pain, Constipation Disposition: HOME SELF-CARE Condition: Good Instructions (If sedation given, give patient instructions): Constipation (ED), Abdominal Pain (ED) Is patient prescribed a controlled substance at d/c from ED?: No Referrals: Romulo Kurtz MD [Primary Care Provider] - 1-2 days
[2019-09-13 00:35] VITALS: BP 145/76; PULSE 80; TEMP 98.7
== END 2019-09-13 00:35 | disposition home or self-care (01) ==
LOC: EC 22:52
DX: K59.00 Constipation, unspecified (principal); I10 Essential (primary) hypertension; E78.5 Hyperlipidemia, unspecified; K21.9 Gastro-esophageal reflux disease without esophagitis; J45.909 Unspecified asthma, uncomplicated; Z79.82 Long term (current) use of aspirin; Z79.899 Other long term (current) drug therapy; Z88.8 Allergy status to other drugs, medicaments and biological substances; Z85.828 Personal history of other malignant neoplasm of skin; Z90.49 Acquired absence of other specified parts of digestive tract
CPT/HCPCS: 99284

== ENCOUNTER → 2019-11-01 | Outpatient (CLI) | payer MEDICARE ==
--- NOTE | 2019-11-01 15:28 | CT ---
EXAMINATION TYPE: CT abdomen w con DATE OF EXAM: 11/01/2019 COMPARISON: Prior CT 05/11/2019 HISTORY: Follow up renal cyst CT DLP: 1029.9 mGycm Automated exposure control for dose reduction was used. TECHNIQUE: Helical acquisition of images was performed from the lung bases through the top of iliac crest to include entire abdomen. CONTRAST: Performed without Oral Contrast and with IV Contrast, patient injected with 100 mL of Isovue 300. FINDINGS: Probable hiatal hernia. LUNG BASES: No significant abnormality is appreciated. LIVER/GB: Suspect interval cholecystectomy, otherwise unchanged. PANCREAS: No significant abnormality is seen. SPLEEN: No significant abnormality is seen. ADRENALS: No significant abnormality is seen. KIDNEYS: The exam is stable. The high density focus at the lower pole the left kidney shows a similar size and Hounsfield unit measurement. Multiple cystic foci are again noted within the right kidney. BOWEL: No significant abnormality is seen. LYMPH NODES: No significant abnormality is appreciated. OSSEOUS STRUCTURES: No significant abnormality is seen. FREE AIR: No Free Air visible ASCITES: None visible. RETROPERITONEAL ADENOPATHY: No Retroperitoneal Adenopathy visible. OTHER: IMPRESSION: KIDNEYS ARE STABLE.
== END | disposition home or self-care (01) ==
LOC: RADCTMAIN 11:49
PROVIDERS: ATTEND Urology
DX: N28.1 Cyst of kidney, acquired (principal); Z88.8 Allergy status to other drugs, medicaments and biological substances
CPT/HCPCS: 82565; 84520; 74160; 36415; Q9967

== ENCOUNTER → 2020-03-06 | Outpatient (CLI) | payer MEDICARE ==
[2020-03-06 15:43] LABS: T4, Free (Free Thyroxine) 0.92 ng/dL (0.78-2.19)
--- NOTE | 2020-03-06 17:28 | US ---
EXAMINATION TYPE: US thyroid st tissue head/neck DATE OF EXAM: 03/06/2020 COMPARISON: 03/08/2019 CLINICAL HISTORY: 74-year-old male E04.2 Nontoxic multinodular goiter. TECHNIQUE: Multiple sonographic images of the thyroid gland are obtained. FINDINGS: GLAND SIZE: Right Lobe: 4.3 x 1.9 x 1.6 cm. Overall Parenchyma: Homogeneous Left Lobe: 5.0 x 1.5 x 1.4 cm. Overall Parenchyma: homogeneous Isthmus Thickness: 4.4 mm. NODULES: Multiple on both sides, the majority are small and subcentimeter. Largest are measured below . RIGHT: # of nodules measured on right: 2 1. 0.9 X 0.6 x 0.7 cm hypoechoic solid nodule at the upper pole with poorly defined margins . This nodule is wider than tall and shows no intranodular vascularity. Prior size: 1.1 x 0.7 x 1.1 cm 2. 1.2 X 0.8 x 1.2 cm hypoechoic solid nodule at the lower pole with well-defined margins. This nod ule is wider than tall and shows intranodular vascularity. Prior size: 0.7 x 0.5 x 0.7 cm LEFT: # of nodules measured on left: 1 1. 0.6 X 0.4 x 0.4 cm hypoechoic solid nodule at the mid pole with well-defined margins . This nod ule is wider than tall and shows intranodular vascularity. Prior size: 0.7 x 0.5 x 0.8 cm ISTHMUS: # of nodules measured in the isthmus: 0 Heeler notes: Bilateral neck scanned, no evidence of lymphadenopathy. IMPRESSION: 1. The solid nodule at the right lower pole has increased in size at 12 x 12 mm (versus 7 x 7 mm, pre viously). Consider FNA. 2. The other measured nodules are unchanged.
== END | disposition home or self-care (01) ==
LOC: RADUSWWP 13:10
PROVIDERS: ATTEND Internal Medicine Endocrinology, Diabetes & Metabolism
DX: E04.2 Nontoxic multinodular goiter (principal); E29.1 Testicular hypofunction
CPT/HCPCS: 76536; 84403; 84439; 84443; 84480

== ENCOUNTER → 2020-11-06 | Outpatient (CLI) | payer MEDICARE ==
--- NOTE | 2020-11-06 18:36 | CT ---
EXAMINATION TYPE: CT abdomen w con DATE OF EXAM: 11/06/2020 COMPARISON: 11/01/2019 INDICATION: Renal cysts DLP: 1117.3 mGycm, Automated exposure control for dose reduction was used. CONTRAST: 100 mL of Isovue 300. Study performed with Oral Contrast TECHNIQUE: Axial images were obtained from above the diaphragm to the pubic rami in the axial plane a t 5 mm thick sections. Reconstructed images are reviewed on the computer in the coronal plane. FINDINGS: Limited CT sections are obtained the lung bases. The lung bases are clear. Coronary artery calcific ation is present. CT ABDOMEN: Liver: Normal Spleen: Normal Pancreas: Normal Adrenal glands: The adrenal glands are normal. Gallbladder: Surgically absent Kidneys: Multiple cortical renal cysts are present. This includes a 1.4 cm cyst at the superior pole right kidney measuring 15 Hounsfield units cortical renal cyst on the posterior lateral upper pole ri ght kidney measuring 1.6 cm and 10 Hounsfield units and 1.3 cm cyst on the lateral right mid kidney m easuring 1.3 cm and 16 Hounsfield units there is a posterior medial 3.1 cm cyst measuring 5 Hounsfiel d units on the right kidney. Inferior anterior right kidney is 1.5 cm cyst measuring 13 Hounsfield un its. On the left lateral inferior pole is a 1.3 cm cyst and 15 Hounsfield units. Cysts were present p reviously. No hydronephrosis is present. Delayed images were obtained through the kidneys, which re main unremarkable. Aorta: Vascular calcification is within the aorta. Inferior vena cava: Normal. Diverticular changes are within loops of bowel. There are some loops of bowel lacking oral contrast o r incompletely distended limiting their evaluation. IMPRESSIONS: 1. Multiple stable bilateral cortical renal cysts, greater in number in the right kidney and on the left. Findings are unchanged.
== END | disposition home or self-care (01) ==
LOC: RADCTMAIN 06:45
PROVIDERS: ATTEND Urology
DX: N28.1 Cyst of kidney, acquired (principal)
CPT/HCPCS: 82565; 84520; 74160; 36415; Q9967

== ENCOUNTER → 2021-03-29 | Outpatient (CLI) | payer MEDICARE ==
--- NOTE | 2021-03-29 13:55 | US ---
EXAMINATION TYPE: US thyroid st tissue head/neck DATE OF EXAM: 03/29/2021 COMPARISON:03/06/2020 CLINICAL HISTORY: E04.2 Nontoxic multinodular goiter. Follow up on prior nodules GLAND SIZE: Right Lobe: 5.0 x 2.1 x 1.9 cm Overall Parenchyma: homogenous Left Lobe: 4.8 x 1.8 x 1.4 cm Overall Parenchyma: homogeneous Isthmus Thickness: 0.5 cm NODULES RIGHT: # of nodules measured on right: 2 1. 1.0 X 0.7 x 0.7 cm, upper lateral, spongiform, hypoechoic nodule, which is taller than wide, wit h lobulated or irregular margins, without echogenic foci. Prior size: 0.9 x 0.6 x 0.7 cm 2. 1.4 X 1.4 x 1.0 cm, lower lateral, mixed cystic and solid, hypoechoic nodule, which is taller th an wide, with lobulated or irregular margins, without echogenic foci. Prior size: 1.2 x 0.8 x 1.2 cm LEFT: # of nodules measured on left: 2 1. 0.6 X 0.5 x 0.3 cm, upper mid, spongiform, hypoechoic nodule, which is taller than wide, with il l-defined margins, without echogenic foci. Prior size: 0.6 x 0.4 x 0.4 cm 2. 0.2 X 0.3 x 0.2 cm, lower mid, cystic or almost completely cystic, hypoechoic nodule, which is taller than wide, with ill-defined margins, without echogenic foci. ISTHMUS: # of nodules measured in the isthmus: 1 1. 0.9 X 0.8 x 0.5 cm solid or almost completely solid, hypoechoic nodule, which is taller than wid e, with ill-defined margins, without echogenic foci. Bilateral neck scanned, no evidence of lymphadenopathy. Homogeneous normal-sized thyroid with bilateral stable small nodules. IMPRESSION: As above. No new greater than 1.0 cm suspicious nodules identified.
[2021-03-29 16:14] LABS: T4, Free (Free Thyroxine) 1.02 ng/dL (0.78-2.19)
== END | disposition home or self-care (01) ==
LOC: RADUSWWP 13:11
PROVIDERS: ATTEND Internal Medicine Endocrinology, Diabetes & Metabolism
DX: E04.2 Nontoxic multinodular goiter (principal); E29.1 Testicular hypofunction
CPT/HCPCS: 36415; 76536; 84403; 84439; 84443; 84481

== ENCOUNTER → 2021-09-12 | Outpatient (CLI) | payer MEDICARE ==
--- NOTE | 2021-09-12 23:03 | US ---
EXAMINATION TYPE: US thyroid st tissue head/neck DATE OF EXAM: 09/12/2021 COMPARISON: NONE CLINICAL HISTORY: E04.2 MULTINODULAR GOITER. GLAND SIZE: Right Lobe: 4.9 x 1.7 x 1.7 cm Overall Parenchyma: homogenous Left Lobe: 5.0 x 1.4 x 1.5 cm Overall Parenchyma: homogeneous Isthmus Thickness: 0.5 cm NODULES RIGHT: # of nodules measured on right: 1. 0.8 X 0.7 x 0.8 cm, upper , mixed cystic and solid, hypoechoic nodule, which is taller than wide , with ill-defined margins, without echogenic foci. Prior size: 1.0 x 0.7 x 0.7 cm 2. 1.2 X 1.0 x 1.2 cm, lower, mixed cystic and solid, hypoechoic nodule, which is wider than tall, with smooth margins, without echogenic foci. Prior size: 1.4 x 1.4 x 1.0 cm LEFT: # of nodules measured on left: 1 Subcentimeter cysts noted 1. 0.7 X 0.4 x 0.6 cm, upper, mixed cystic and solid, hypoechoic nodule, which is wider than tall, with ill-defined margins, without echogenic foci. Prior size: 0.6 x 0.5 x 0.3 cm ISTHMUS: # of nodules measured in the isthmus: 0 Bilateral neck scanned, no evidence of lymphadenopathy. Heterogeneous normal-sized thyroid with stable bilateral nodules. IMPRESSION: As above.
== END | disposition home or self-care (01) ==
LOC: RADUSWWP 09:10
PROVIDERS: ATTEND Internal Medicine Endocrinology, Diabetes & Metabolism
DX: E04.2 Nontoxic multinodular goiter (principal)
CPT/HCPCS: 76536

== ENCOUNTER → 2021-11-04 | Outpatient (CLI) | payer MEDICARE ==
--- NOTE | 2021-11-04 09:21 | XR ---
No sacral spine HISTORY: Spondylosis with myelopathy 6 views of lumbosacral spine Correlation to prior exam 12/21/2018 There is not a significant interval change. Hypertrophic spondylosis is present, there is a spinal cu rvature. Lumbar vertebral bodies show preserved height and bone mineralization. There is no evident s pondylolysis or change in alignment. Loss of disc height is present at intervertebral levels, there i s vacuum phenomenon noted at L4-5. Sclerosis in the posterior elements is consistent with facet arthr opathy. IMPRESSION: Degenerative disc disease, facet arthropathy, hypertrophic spondylosis
== END | disposition home or self-care (01) ==
LOC: RADXRMAIN 08:33
PROVIDERS: ATTEND Internal Medicine
DX: M51.37 Other intervertebral disc degeneration, lumbosacral region (principal); M47.817 Spondylosis without myelopathy or radiculopathy, lumbosacral region
CPT/HCPCS: 72110

== ENCOUNTER → 2022-01-13 | Outpatient (CLI) | payer MEDICARE ==
--- NOTE | 2022-01-13 13:37 | CT ---
EXAMINATION TYPE: CT abdomen wo/w con DATE OF EXAM: 01/13/2022 COMPARISON: Prior CT November 06, 2020 and older CTs HISTORY: Cyst of kidney CT DLP: 2508 mGycm Automated exposure control for dose reduction was used. TECHNIQUE: Helical acquisition of images was performed from the lung bases through the top of iliac crest to include entire abdomen. CONTRAST: Performed without Oral Contrast and with IV Contrast, patient injected with 80ml mL of Isovue 300. FINDINGS: LUNG BASES: No significant abnormality is appreciated. LIVER/GB: Gallbladder not seen and presumed surgically absent. No new biliary dilatation. PANCREAS: No significant abnormality is seen. SPLEEN: No significant abnormality is seen. ADRENALS: No significant abnormality is seen. KIDNEYS: No renal calculi on noncontrast CT. Postcontrast images show symmetric cortical uptake and e xcretion without hydronephrosis seen bilaterally. A few punctate hypodense subcentimeter lesions thro ughout the left kidney are too small to further characterize but presumably benign. There are larger simple appearing thin-walled cysts scattered throughout the right kidney with largest measuring 4.1 c m long axis lower pole level coronal image 77 series 8. No significant change from prior CTs. No conc erning solid masses identified. BOWEL: Stomach poorly distended and is thus suboptimally evaluated as oral contrast has passed throu gh stomach. No suspicious small or large bowel dilatation. Normal appendix from the cecum identified. LYMPH NODES: No significant abnormality is seen. OSSEOUS STRUCTURES: [id number] multilevel spurring of the thoracolumbar spine. Moderate to s evere disc space narrowing with vacuum disc phenomenon L3-L4 through the L5-S1 levels. FREE AIR: No free air is visualized. OTHER: Mild to moderate calcified plaque of the abdominal aorta extends into branch vessels IMPRESSION: Simple appearing thin-walled cysts more numerous and larger in size in the right kidney v ersus left kidney redemonstrated. No significant change from prior CTs. No concerning solid or [place] k 3 or greater cystic mass in either kidney identified.
== END | disposition home or self-care (01) ==
LOC: RADCTMAIN 10:54
PROVIDERS: ATTEND Urology
DX: N28.1 Cyst of kidney, acquired (principal)
CPT/HCPCS: 82565; 84520; 74170; Q9967

== ENCOUNTER → 2022-03-17 | Outpatient (CLI) | payer MEDICARE ==
--- NOTE | 2022-03-17 08:48 | US ---
EXAMINATION TYPE: US thyroid st tissue head/neck DATE OF EXAM: 03/17/2022 COMPARISON: CLINICAL HISTORY: E04.2 NONTOXIC MULTINODULAR GOITER. Follow up thyroid nodules GLAND SIZE: Right Lobe: 5.3 x 1.7 x 2.4 cm Overall Parenchyma: homogenous Left Lobe: 5.0 x 1.5 x 1.9 cm Overall Parenchyma: homogeneous Isthmus Thickness: 0.8 cm NODULES RIGHT: # of nodules measured on right: 2 1. 0.7 X 0.6 x 0.7 cm, upper lateral, mixed cystic and solid, hypoechoic nodule, which is taller th an wide, with smooth margins, without echogenic foci. Prior size: 0.8 x 0.7 x 0.8 cm 2. 1.5 X 1.5 x 1.2 cm, lower mid, mixed cystic and solid, hypoechoic nodule, which is wider than ta ll, with smooth margins, without echogenic foci. Prior size: 1.2 x 1.0 x 1.2 cm LEFT: # of nodules measured on left: 1 1. 0.5 X 0.6 x 0.6 cm, upper mid, mixed cystic and solid, hypoechoic nodule, which is wider than ta ll, with smooth margins, without echogenic foci. Prior size: 0.7 x 0.4 x 0.6 cm ISTHMUS: # of nodules measured in the isthmus: 1 1. 1.1 X 1.2 x 0.9 cm cystic or almost completely cystic, anechoic nodule, which is wider than tall , with smooth margins, without echogenic foci. Prior size: no prior Bilateral neck scanned, no evidence of lymphadenopathy. IMPRESSION: Glandular enlargement and heterogeneity with nonspecific bilateral nodularity which appears essential ly stable. Thyroid isthmus. Appropriate follow-up advised.
[2022-03-17 10:53] LABS: T4, Free (Free Thyroxine) 1.5 ng/dL (0.800-1.800)
== END | disposition home or self-care (01) ==
LOC: RADUSWWP 07:53
PROVIDERS: ATTEND Internal Medicine Endocrinology, Diabetes & Metabolism
DX: E04.9 Nontoxic goiter, unspecified (principal); E04.2 Nontoxic multinodular goiter
CPT/HCPCS: 76536; 84439; 84443

== ENCOUNTER 2022-05-04 23:54 | Inpatient (IN) | payer MEDICARE ==
--- NOTE | 2022-05-05 00:23 | ED ---
Weakness HPI - General Chief complaint: Weakness Stated complaint: Flu-like symptoms Time Seen by Provider: 05/05/22 00:10 Source: patient Mode of arrival: EMS - History of Present Illness Initial comments: This patient is 76-year-old man who presents with complaint that he is been feeling worse over the past few days. He states that he had been diagnosed with Covid on April he just finished the fifth they have backslid treatment yesterday but states he has not noticed any improvement, in fact is feeling worse. He has generalized weakness and fatigue. Denies focal weakness. He states his oral intake has been decreased. He has had some diarrhea, but has not noticed any blood or dark tarry stool The patient has occasional cough. He is currently denying dyspnea. MD Complaint: generalized weakness, lack of energy, difficulty walking -: days(s) Location: generalized Consistency: constant Improves with: none Worsens with: none Context: recent illness Associated Symptoms: denies other symptoms - Related Data Home Medications Medication Instructions Recorded Confirmed Aspirin 81 mg PO DAILY 03/20/15 05/05/22 Losartan/Hydrochlorothiazide 1 tab PO DAILY 04/30/18 05/05/22 [Losartan-Hctz 100-25 mg Tab] Spironolactone 25 mg PO DAILY 04/30/18 05/05/22 Ubidecarenone [Co Q-10] 100 mg PO HS 04/30/18 05/05/22 Albuterol Sulfate [Proair Hfa] 1 - 2 puff INHALATION RT-Q6H PRN 07/23/18 05/05/22 L.acidoph,Paracasei, B.lactis 1 cap PO DAILY 07/23/18 05/05/22 [Probiotic] Montelukast [Singulair] 10 mg PO DAILY PRN 07/23/18 05/05/22 Olopatadine HCl [Patanol 0.1%] 1 applic BOTH EYES DAILY 07/23/18 05/05/22 Omeprazole [PriLOSEC] 20 mg PO BID 07/23/18 05/05/22 polyethylene glycoL 3350 [Miralax] 17 gm PO DAILY 09/06/19 05/05/22 Ammonium Lactate Cream [Lac-Hydrin 1 applic TOPICAL BID 05/05/22 05/05/22 12% Cream] Cetirizine HCl [Zyrtec] 10 mg PO HS 05/05/22 05/05/22 Cholecalciferol [Vitamin D3 (25 50 mcg PO DAILY 05/05/22 05/05/22 Mcg = 1000 Iu)] Clindamycin Topical Soln 1 applic TOPICAL BID PRN 05/05/22 05/05/22 [Cleocin-T Topical Soln] Hydrocortisone Cream 1 applic TOPICAL BID PRN 05/05/22 05/05/22 [Hydrocortisone 2.5% Cream] Neuriva 100 mg PO DAILY 05/05/22 05/05/22 Rosuvastatin Calcium 5 mg PO HS 05/05/22 05/05/22 Vit C/E/Zn/Coppr/Lutein/Zeaxan 1 cap PO BID 05/05/22 05/05/22 [Preservision Areds 2 Softgel] carvediloL [Coreg] 6.25 mg PO BID 05/05/22 05/05/22 metroNIDAZOLE 0.75% CREAM 1 applic TOPICAL BID 05/05/22 05/05/22 [Metrocream 0.75%] Allergies Allergy/AdvReac Type Severity Reaction Status Date / Time amlodipine besylate Allergy Rash/Hives Verified 05/05/22 08:29 [From [facility]vas] hydralazine AdvReac Unknown Rash/Hives, Verified 05/05/22 08:29 Upset Stomach Review of Systems ROS Statement: Those systems with pertinent positive or pertinent negative responses have been documented in the HPI. ROS Other: All systems not noted in ROS Statement are negative. Constitutional: Reports: fever, chills, weakness Respiratory: Reports: cough Cardiovascular: Denies: chest pain, palpitations, edema, syncope Gastrointestinal: Reports: nausea, vomiting, diarrhea. Denies: abdominal pain Genitourinary: Denies: dysuria, hematuria Musculoskeletal: Denies: back pain Skin: Denies: rash Neurological: Reports: headache. Denies: weakness Past Medical History Past Medical History: Asthma, Cancer, GERD/Reflux, Hyperlipidemia, Hypertension, Osteoarthritis (OA), Prostate Disorder, Skin Disorder Additional Past Medical History / Comment(s): hiatal hernia, THYROID NODULES., HX SKIN CANCER , rosacea, cyst on kidney, History of Any Multi-Drug Resistant Organisms: None Reported Past Surgical History: Cholecystectomy, Orthopedic Surgery, Prostate Surgery Additional Past Surgical History / Comment(s): TURP, colonoscopy , EGD., arthroscopy rt knee, skin cancer removed from neck and face Past Anesthesia/Blood Transfusion Reactions: Motion Sickness Past Psychological History: No Psychological Hx Reported Smoking Status: Never smoker Past Alcohol Use History: Rare Past Drug Use History: None Reported - Past Family History Mother Family Medical History: No Reported History Father Family Medical History: CVA/TIA General Exam General appearance: alert, in no apparent distress Head exam: Present: atraumatic, normocephalic Eye exam: Present: normal appearance. Absent: scleral icterus, conjunctival injection Neck exam: Present: normal inspection Respiratory exam: Present: normal lung sounds bilaterally. Absent: respiratory distress, wheezes, rales, rhonchi, stridor Cardiovascular Exam: Present: regular rate, normal rhythm, normal heart sounds. Absent: systolic murmur, diastolic murmur, rubs, gallop GI/Abdominal exam: Present: soft. Absent: distended, tenderness, guarding, rebound, rigid Extremities exam: Present: normal inspection, normal capillary refill. Absent: pedal edema, calf tenderness Back exam: Present: normal inspection. Absent: CVA tenderness (R), CVA tenderness (L) Neurological exam: Present: alert Skin exam: Present: warm, dry, intact, normal color. Absent: rash Course Vital Signs 05/04/22 05/05/22 23:55 01:20 Temperature 97.7 F Pulse Rate 63 60 Respiratory 16 16 Rate Blood Pressure 160/93 147/93 O2 Sat by Pulse 98 98 Oximetry EKG Findings - EKG Results: EKG: interpreted by ERMD, sinus rhythm (Rate 63 bpm), normal axis, normal QRS, normal ST/T, no acute changes Medical Decision Making - Medical Decision Making Patient is 76-year-old man diagnosed with Covid last week. He did complete course of Paxlovid, and states that the cough seemed to improve however since finishing that he is feeling more severe weakness and fatigue. The workup here does reveal hyponatremia. We'll admit patient to replace sodium and to consider referral rehab placement should patient not be feeling much better. Was pt. sent in by a medical professional or institution? @ -no Did you speak to anyone other than the patient for history? @ -[No Did you review nursing and triage notes? @ -[agree Were old charts reviewed? @ -[yes Differential Diagnosis? @ -Differential Weakness: Hypoglycemia, shock, sepsis, hyponatremia, anemia, infection, PA, ETOH, adverse medicine reaction, overdose, stroke, this is not meant to be an all-inclusive list. EKG interpreted by me (3pts min.)? @ -[See chart X-rays interpreted by me (1pt min.)? @ -See chart CT interpreted by me (1pt min.)? @ - U/S interpreted by me (1pt. min.)? @ -[none] What testing was considered but not performed? (CT, X-rays, U/S, labs)? Why? @ [ What meds were considered but not given? Why? @ -[none] Did you discuss the management of the patient with other professionals? @ -[Admitting physician Did you reconcile home meds? @ -[Yes Was smoking cessation discussed for >3mins.? @ -[none] Was critical care preformed (if so, how long)? @ -[none] Were there social determinants of health that impacted care today? How? (Homeles sness, low income, unemployed, alcoholism, drug addiction, transportation, low edu. Level, literacy, decrease access to med. care, [facility], rehab)? @ -[No Was there de-escalation of care discussed even if they declined? (Discuss DNR or withdrawal of care, Hospice)? @ -[No What co-morbidities impacted this encounter? (DM, HTN, Smoking, COPD, CAD, Cancer, CVA, Hep., AIDS, mental health diagnosis, sleep apnea, morbid obesity)? @ -[None Was patient admitted / discharged? @ -[Admitted Undiagnosed new problem with uncertain prognosis? @ -[none] Drug Therapy requiring intensive monitoring for toxicity (Heparin, Nitro, Insulin, Cardizem)? @ -[none] Were any procedures done? @ -[none] Diagnosis/symptom? @ -[Acute hyponatremia Acute, or Chronic, or Acute on Chronic? @ -[Acute Uncomplicated (without systemic symptoms) or Complicated (systemic symptoms)? @ -[Uncomplicated Side effects of treatment? @ -[none] Exacerbation, Progression, or Severe Exacerbation] @ -[no] Poses a threat to life or bodily function? @ -[yes - Lab Data Result diagrams: 05/05/22 00:52 05/07/22 08:17 Lab Results 0105/05/22 05/05/22 Range/Units 00:52 00:52 00:52 WBC 5.3 (3.8-10.6) k/uL RBC 4.64 (4.30-5.90) m/uL Hgb 14.6 (13.0-17.5) gm/dL Hct 39.6 (39.0-53.0) % MCV 85.4 (80.0-100.0) fL MCH 31.4 (25.0-35.0) pg MCHC 36.8 (31.0-37.0) g/dL RDW 12.3 (11.5-15.5) % Plt Count 216 (150-450) k/uL MPV 6.7 Neutrophils % 69 % Lymphocytes % 18 % Monocytes % 8 % Eosinophils % 3 % Basophils % 0 % Neutrophils # 3.6 (1.3-7.7) k/uL Lymphocytes # 1.0 (1.0-4.8) k/uL Monocytes # 0.4 (0-1.0) k/uL Eosinophils # 0.2 (0-0.7) k/uL Basophils # 0.0 (0-0.2) k/uL Hyperchromasia Marked PT 10.4 (9.0-12.0) sec INR 1.0 (<1.2) APTT 23.7 (22.0-30.0) sec D-Dimer 0.28 (<0.60) mg/L FEU Sodium 116 L* (137-145) mmol/L Potassium 4.8 (3.5-5.1) mmol/L Chloride 86 L (98-107) mmol/L Carbon Dioxide 23 (22-30) mmol/L Anion Gap 7 mmol/L BUN 14 (9-20) mg/dL Creatinine 0.76 (0.66-1.25) mg/dL Est GFR (CKD-EPI)AfAm >90 (>60 ml/min/1.73 sqM) Est GFR (CKD-EPI)NonAf 88 (>60 ml/min/1.73 sqM) Glucose 117 H (74-99) mg/dL Plasma Lactic Acid Danny (0.7-2.0) mmol/L Calcium 8.7 (8.4-10.2) mg/dL Magnesium 1.5 L (1.6-2.3) mg/dL Total Bilirubin 0.8 (0.2-1.3) mg/dL AST 39 (17-59) U/L ALT 27 (4-49) U/L Alkaline Phosphatase 61 (38-126) U/L Troponin I (0.000-0.034) ng/mL NT-Pro-B Natriuret Pep pg/mL Total Protein 6.6 (6.3-8.2) g/dL Albumin 3.9 (3.5-5.0) g/dL 05/05/22 05/05/22 05/05/22 Range/Units 00:52 00:52 00:52 WBC (3.8-10.6) k/uL RBC (4.30-5.90) m/uL Hgb (13.0-17.5) gm/dL Hct (39.0-53.0) % MCV (80.0-100.0) fL MCH (25.0-35.0) pg MCHC (31.0-37.0) g/dL RDW (11.5-15.5) % Plt Count (150-450) k/uL MPV Neutrophils % % Lymphocytes % % Monocytes % % Eosinophils % % Basophils % % Neutrophils # (1.3-7.7) k/uL Lymphocytes # (1.0-4.8) k/uL Monocytes # (0-1.0) k/uL Eosinophils # (0-0.7) k/uL Basophils # (0-0.2) k/uL Hyperchromasia PT (9.0-12.0) sec INR (<1.2) APTT (22.0-30.0) sec D-Dimer (<0.60) mg/L FEU Sodium (137-145) mmol/L Potassium (3.5-5.1) mmol/L Chloride (98-107) mmol/L Carbon Dioxide (22-30) mmol/L Anion Gap mmol/L BUN (9-20) mg/dL Creatinine (0.66-1.25) mg/dL Est GFR (CKD-EPI)AfAm (>60 ml/min/1.73 sqM) Est GFR (CKD-EPI)NonAf (>60 ml/min/1.73 sqM) Glucose (74-99) mg/dL Plasma Lactic Acid Danny 0.7 (0.7-2.0) mmol/L Calcium (8.4-10.2) mg/dL Magnesium (1.6-2.3) mg/dL Total Bilirubin (0.2-1.3) mg/dL AST (17-59) U/L ALT (4-49) U/L Alkaline Phosphatase (38-126) U/L Troponin I <0.012 (0.000-0.034) ng/mL NT-Pro-B Natriuret Pep 27 pg/mL Total Protein (6.3-8.2) g/dL Albumin (3.5-5.0) g/dL Disposition Clinical Impression: Hyponatremia Disposition: ADMITTED IP TO THIS HOSP Condition: Fair Is patient prescribed a controlled substance at d/c from ED?: No
[2022-05-05 01:03] LABS: Basophils % (A) 0 %; Eosinophils # (A) 0.2 k/uL (0-0.7); Eosinophils % (A) 3 %; HCT 39.6 % (39.0-53.0); HGB 14.6 gm/dL (13.0-17.5); Hyperchromasia Marked; Lymphocytes % (A) 18 %; MCH 31.4 pg (25.0-35.0); MCHC 36.8 g/dL (31.0-37.0); MCV 85.4 fL (80.0-100.0); Mean Platelet Volume 6.7; Monocytes # (A) 0.4 k/uL (0-1.0); Monocytes % (A) 8 %; Neutrophils # (A) 3.6 k/uL (1.3-7.7); Neutrophils % (A) 69 %; Platelet Count 216 k/uL (150-450); RBC 4.64 m/uL (4.30-5.90); RDW 12.3 % (11.5-15.5); WBC 5.3 k/uL (3.8-10.6)
[2022-05-05 01:17] LABS: Partial Thromboplastin Time 23.7 sec (22.0-30.0); Prothrombin Time 10.4 sec (9.0-12.0)
--- NOTE | 2022-05-05 01:20 | XR ---
EXAMINATION TYPE: XR chest 2V DATE OF EXAM: 05/05/2022 COMPARISON: 04/30/2018 HISTORY: Weakness TECHNIQUE: 2 view FINDINGS: Heart is normal. No heart failure no confluent pneumonic infiltrate. Costophrenic angles ar e clear. No pleural effusion. Bony thorax is intact. IMPRESSION: No active cardiopulmonary disease. No change.
[2022-05-05 01:23] LABS: ALT 27 U/L (4-49); AST 39 U/L (17-59); African American GFR (CKD) >90 (>60 ml/min/1.73 sqM); Albumin 3.9 g/dL (3.5-5.0); Alkaline Phosphatase 61 U/L (38-126); Anion Gap 7 mmol/L; Blood Urea Nitrogen 14 mg/dL (9-20); Calcium 8.7 mg/dL (8.4-10.2); Carbon Dioxide 23 mmol/L (22-30); Chloride 86 mmol/L (98-107); Glucose 117 mg/dL (74-99); Magnesium 1.5 mg/dL (1.6-2.3); Non-African American GFR(CKD) 88 (>60 ml/min/1.73 sqM); Potassium 4.8 mmol/L (3.5-5.1); Total Bilirubin 0.8 mg/dL (0.2-1.3); Total Protein 6.6 g/dL (6.3-8.2)
[2022-05-05 01:40] LABS: Sodium 116 mmol/L (137-145)
[2022-05-05] MEDS ORDERED: SODIUM CHLORIDE 0.9% 1,000 ML IV STA (02:17)
[2022-05-05] MEDS ORDERED: SODIUM CHLORIDE 0.9% 1,000 ML IV ONE (02:17)
[2022-05-05] MEDS ORDERED: ACETAMINOPHEN TAB 325 MG TAB PO PRN (03:17)
[2022-05-05] MEDS ORDERED: NALOXONE 0.4 MG/ML 1 ML VIAL IV PRN (03:17)
[2022-05-05] MEDS ORDERED: ALBUTEROL HFA INHALER INHALATION PRN (08:41)
[2022-05-05] MEDS ORDERED: TRIAMCINOLONE 0.1% CREAM 80 GM TUBE TOPICAL PRN (08:41)
[2022-05-05] MEDS ORDERED: MONTELUKAST 10 MG TAB PO PRN (08:41)
[2022-05-05] MEDS ORDERED: NON FORMULARY DRUG (Clindamycin Topical Soln 1 APPLIC Ml) TOPICAL PRN (08:41)
[2022-05-05] MEDS: LOSARTAN 50 MG TAB PO SCH (09:08)
[2022-05-05] MEDS: carvediloL 6.25 MG TAB PO SCH ×2 (09:08→16:45)
[2022-05-05] MEDS: polyethylene glycoL 3350 17 GM POWD.PACK PO SCH (09:08)
[2022-05-05] MEDS: CHOLECALCIFEROL 25 MCG (1000 IU) TABLET PO SCH (09:08)
[2022-05-05] MEDS: LACTOBACILLUS ACIDOPH & BULGAR 1 EACH PACKET PO SCH (09:08)
[2022-05-05] MEDS: ENOXAPARIN 40 MG/0.4 ML SYRINGE SQ SCH (09:08)
[2022-05-05] MEDS: FAMOTIDINE 20 MG TAB PO SCH ×2 (09:08→21:01)
[2022-05-05] MEDS: ASPIRIN 81 MG PO SCH (09:08)
[2022-05-05] MEDS: PANTOPRAZOLE 40 MG TABLET PO SCH ×2 (09:09→16:45)
[2022-05-05] MEDS: VIT A,C & E-LUTEIN-MINERALS 1 EACH TAB PO SCH ×2 (11:16→21:01)
[2022-05-05] MEDS: KETOTIFEN 0.025% OPHTH DROPS 5 ML BTL BOTH EYES SCH (11:16)
[2022-05-05 11:37] LABS: African American GFR (CKD) >90 (>60 ml/min/1.73 sqM); Anion Gap 6 mmol/L; Blood Urea Nitrogen 11 mg/dL (9-20); Calcium 8.4 mg/dL (8.4-10.2); Carbon Dioxide 24 mmol/L (22-30); Chloride 89 mmol/L (98-107); Glucose 87 mg/dL (74-99); Non-African American GFR(CKD) 89 (>60 ml/min/1.73 sqM)
[2022-05-05 11:41] LABS: Sodium 119 mmol/L (137-145)
[2022-05-05] MEDS: MAGNESIUM SULFATE-D5W PMX 1 GM in DEXTROSE/WATER 1 100ML.BAG IVPB SCH ×2 (14:17→15:39)
--- NOTE | 2022-05-05 14:54 | P.HPIM ---
History of Present Illness H&P Date: 05/05/22 HISTORY OF PRESENT ILLNESS This is a 76 year old male with past medical history of hypertension, hyperlipidemia, diverticulitis, thyroid nodule, gastroesophageal reflux disease, mild persistent ALLERGIC asthma, benign prostatic hypertrophy vitamin D deficiency, constipation, ALLERGIC rhinitis, rosacea. Patient was diagnosed with Covid about 2 weeks ago and just finished course of Paxlovid. Unfortunately, patient has been feeling worse over the last couple of days especially yesterday. He complains of generalized weakness and fatigue, poor oral intake. He has occasional cough. No dyspnea. He has had some diarrhea but no blood in the stools. No nausea or vomiting. His initial blood pressure was 160/93 and heart rate 63. EKG was a sinus rhythm with no acute ST changes. CBC was unremarkable. Sodium came back surprisingly at 116. Potassium 4.8, chloride 86, CO2 23, BUN 14 and creatinine 0.76. Blood sugar 117. D-dimer 0.28. Liver function tests were normal. Lactic acid 0.7. Troponin negative. ProBNP 27.Coronavirus PCR positive. Chest x-ray reveals no acute cardiopulmonary disease. Patient was given 2 L of IV fluid in the emergency center and admitted to cardiac stepdown unit. REVIEW OF SYSTEMS Constitutional: No fever, no chills, no night sweats. No weight change. No weakness, fatigue or lethargy. No daytime sleepiness. EENT: No headache. No blurred vision or double vision, no loss of vision. No loss of Hearing, no ringing in the ears, no dizziness. No nasal drainage or congestion. No epistaxis. No sore throat. Lungs: No shortness of breath, cough, no sputum production. No wheezing. Cardiovascular: No chest pain, no lower extremity edema. No palpitations. No paroxysmal nocturnal dyspnea. No orthopnea. No lightheadedness or dizziness. No syncopal episodes. Abdominal: No abdominal pain. No nausea, vomiting. No diarrhea. No constipation. No bloody or tarry stools. No loss of appetite. Genitourinary: No dysuria, increased frequency, urgency. No urinary retention. Musculoskeletal: No myalgias. No muscle weakness, no gait dysfunction, no frequent falls. No back pain. No neck pain. Integumentary: No wounds, no lesions. No rash or pruritus. No unusual bruising. No change in hair or nails. Neurologic: No aphasia. No facial droop. No change in mentation. No head injury. No headache. No paralysis. No paresthesia. Psychiatric: No depression. No anxiety. No mood swings. Endocrine: No abnormal blood sugars. No weight change. No excessive sweating or thirst. No cold intolerance. MEDICAL HISTORY Hypertension Hyperlipidemia Diverticulitis Thyroid nodule Gastroesophageal reflux disease Mild persistent ALLERGIC asthma Benign prostatic hypertrophy Vitamin D deficiency Constipation ALLERGIC rhinitis Rosacea SURGICAL HISTORY TURP 2004 Basal cell carcinoma removed below right ear 2013 Right knee arthroscopically 2017 Cholecystectomy 2019 Colonoscopy 2011 Bronchoscopy 1999 Cystoscopy 2019 SOCIAL HISTORY No alcohol use, no active tobacco use, no marijuana use. FAMILY HISTORY Father at age 79 from myocardial infarction with history of diabetes and multiple CVA. Mother at age 84 from CHF. Patient has 6 sisters one from diabetes complications, one from old age at 90 with dementia, one from diabetes complications and throat cancer. 2 sisters living with no major medical problems. Patient has one son and one daughter with no major medical conditions. PHYSICAL EXAMINATION Gen: This is a 76 year old male, resting in bed and appears to be comfortable and in no acute distress. HEENT: Head is atraumatic, normocephalic. Pupils equal, round. Sclerae is anicteric. NECK: Supple. No JVD. No lymphadenopathy. No thyromegaly. LUNGS: Clear to auscultation. No wheezes or rhonchi. No intercostal retractions. HEART: Regular rate and rhythm. 2/6 systolic murmur at the left sternal border. ABDOMEN: Soft. Bowel sounds are present. No masses. No tenderness. EXTREMITIES: No pedal edema. No calf tenderness. NEUROLOGICAL: Patient is awake, alert and oriented x3. Cranial nerves 2 through 12 are grossly intact. Deep tendon reflexes 2+ and symmetrical ASSESSMENT AND PLAN 1. Hyponatremia. Obtain urine sodium, urine and serum osmolality 2. Covid 19 infection. Patient completed course of Paxlovid. 3. Diarrhea most likely contributing to low sodium. 4. Hypertension. Continue patient on Coreg 6.25 mg twice daily, losartan 100 mg daily. 5. Hyperlipidemia. Continue atorvastatin 10 mg at bedtime. 6. Gastroesophageal reflux disease. Continue famotidin. 7. Mild persistent asthma. Continue albuterol inhaler every 6 hours as needed, Singulair 10 mg daily, Claritin 10 g at bedtime. 8. Gastroesophageal reflux disease and GI prophylaxis. Protonix 40 mg twice daily. 9. Chronic constipation. Continue MiraLAX 17 g daily. 10. DVT prophylaxis. Lovenox 40 mg subcu daily. Patient will be admitted to the hospital for a minimum of 2 night stay. DISCHARGE PLAN Most likely return home. ET and OT consults added. Impression and plan of care have been directed as dictated by the signing physician. Elodia Lyon nurse practitioner acting as scribe for signing physician. Past Medical History Past Medical History: Asthma, Cancer, GERD/Reflux, Hyperlipidemia, Hypertension, Osteoarthritis (OA), Prostate Disorder, Skin Disorder Additional Past Medical History / Comment(s): hiatal hernia, THYROID NODULES., HX SKIN CANCER , rosacea, cyst on kidney, History of Any Multi-Drug Resistant Organisms: None Reported Past Surgical History: Cholecystectomy, Orthopedic Surgery, Prostate Surgery Additional Past Surgical History / Comment(s): TURP, colonoscopy , EGD., arthroscopy rt knee, skin cancer removed from neck and face Past Anesthesia/Blood Transfusion Reactions: Motion Sickness Past Psychological History: No Psychological Hx Reported Smoking Status: Never smoker Past Alcohol Use History: Rare Past Drug Use History: None Reported - Past Family History Father Family Medical History: CVA/TIA Mother Family Medical History: No Reported History Medications and Allergies Home Medications Medication Instructions Recorded Confirmed Type Aspirin 81 mg PO DAILY 03/20/15 05/05/22 History Losartan/Hydrochlorothiazide 1 tab PO DAILY 04/30/18 05/05/22 History [Losartan-Hctz 100-25 mg Tab] Spironolactone 25 mg PO DAILY 04/30/18 05/05/22 History Ubidecarenone [Co Q-10] 100 mg PO HS 04/30/18 05/05/22 History Albuterol Sulfate [Proair Hfa] 1 - 2 puff INHALATION RT-Q6H PRN 07/23/18 05/05/22 History L.acidoph,Paracasei, B.lactis 1 cap PO DAILY 07/23/18 05/05/22 History [Probiotic] Montelukast [Singulair] 10 mg PO DAILY PRN 07/23/18 05/05/22 History Olopatadine HCl [Patanol 0.1%] 1 applic BOTH EYES DAILY 07/23/18 05/05/22 History Omeprazole [PriLOSEC] 20 mg PO BID 07/23/18 05/05/22 History polyethylene glycoL 3350 [Miralax] 17 gm PO DAILY 09/06/19 05/05/22 History Ammonium Lactate Cream [Lac-Hydrin 1 applic TOPICAL BID 05/05/22 05/05/22 History 12% Cream] Cetirizine HCl [Zyrtec] 10 mg PO HS 05/05/22 05/05/22 History Cholecalciferol [Vitamin D3 (25 50 mcg PO DAILY 05/05/22 05/05/22 History Mcg = 1000 Iu)] Clindamycin Topical Soln 1 applic TOPICAL BID PRN 05/05/22 05/05/22 History [Cleocin-T Topical Soln] Hydrocortisone Cream 1 applic TOPICAL BID PRN 05/05/22 05/05/22 History [Hydrocortisone 2.5% Cream] Neuriva 100 mg PO DAILY 05/05/22 05/05/22 History Rosuvastatin Calcium 5 mg PO HS 05/05/22 05/05/22 History Vit C/E/Zn/Coppr/Lutein/Zeaxan 1 cap PO BID 05/05/22 05/05/22 History [Preservision Areds 2 Softgel] carvediloL [Coreg] 6.25 mg PO BID 05/05/22 05/05/22 History metroNIDAZOLE 0.75% CREAM 1 applic TOPICAL BID 05/05/22 05/05/22 History [Metrocream 0.75%] Allergies Allergy/AdvReac Type Severity Reaction Status Date / Time amlodipine besylate Allergy Rash/Hives Verified 05/05/22 08:29 [From [facility]] hydralazine AdvReac Unknown Rash/Hives, Verified 05/05/22 08:29 Upset Stomach Physical Exam Vitals: Vital Signs Temp Pulse Pulse Resp BP BP Pulse Ox 05/05/22 09:00 97 05/05/22 08:00 98.2 F 79 18 140/77 98 05/05/22 04:17 97.7 F 69 18 186/94 97 05/05/22 01:20 60 16 147/93 98 05/04/22 23:55 97.7 F 63 16 160/93 98 Intake and Output 05/04/22 05/05/22 05/05/22 22:59 06:59 14:59 Intake Total 540 240 Balance 540 240 Intake: Oral 540 240 Other: # Voids 2 Weight 92.986 kg Results CBC & Chem 7: 05/05/22 00:52 05/05/22 10:50 Labs: Abnormal Lab Results - Last 24 Hours (Table) 05/05/22 05/05/22 Range/Units 00:52 05:25 Sodium 116 L* (137-145) mmol/L Chloride 86 L (98-107) mmol/L Glucose 117 H (74-99) mg/dL Magnesium 1.5 L (1.6-2.3) mg/dL Coronavirus (PCR) Detected A (Not Detectd) Thrombosis Risk Factor Assmnt - Choose All That Apply Each Risk Factor Represents 3 Points: Age 75 years or older Thrombosis Risk Factor Assessment Total Risk Factor Score: 3 Thrombosis Risk Factor Assessment Level: Moderate Risk
[2022-05-05] MEDS: SODIUM CHLORIDE 0.9% 1,000 ML IV SCH (21:00)
[2022-05-05] MEDS: LORATADINE 10 MG TAB PO SCH (21:01)
[2022-05-05] MEDS: ATORVASTATIN 10 MG TAB PO SCH (21:01)
[2022-05-06] MEDS: PANTOPRAZOLE 40 MG TABLET PO SCH ×2 (06:34→17:23)
[2022-05-06] MEDS: carvediloL 6.25 MG TAB PO SCH ×2 (06:34→17:23)
[2022-05-06 07:50] LABS: African American GFR (CKD) >90 (>60 ml/min/1.73 sqM); Anion Gap 7 mmol/L; Blood Urea Nitrogen 12 mg/dL (9-20); Calcium 8.5 mg/dL (8.4-10.2); Carbon Dioxide 26 mmol/L (22-30); Chloride 89 mmol/L (98-107); Glucose 102 mg/dL (74-99); Magnesium 1.8 mg/dL (1.6-2.3); Non-African American GFR(CKD) 85 (>60 ml/min/1.73 sqM); Sodium 122 mmol/L (137-145)
[2022-05-06] MEDS: KETOTIFEN 0.025% OPHTH DROPS 5 ML BTL BOTH EYES SCH (09:34)
[2022-05-06] MEDS: LOSARTAN 50 MG TAB PO SCH (09:35)
[2022-05-06] MEDS: VIT A,C & E-LUTEIN-MINERALS 1 EACH TAB PO SCH ×2 (09:35→20:27)
[2022-05-06] MEDS: MONTELUKAST 10 MG TAB PO SCH (09:35)
[2022-05-06] MEDS: FAMOTIDINE 20 MG TAB PO SCH ×2 (09:35→20:26)
[2022-05-06] MEDS: polyethylene glycoL 3350 17 GM POWD.PACK PO SCH (09:36)
[2022-05-06] MEDS: CHOLECALCIFEROL 25 MCG (1000 IU) TABLET PO SCH (09:36)
[2022-05-06] MEDS: ENOXAPARIN 40 MG/0.4 ML SYRINGE SQ SCH (09:36)
[2022-05-06] MEDS: ASPIRIN 81 MG PO SCH (09:36)
[2022-05-06] MEDS: LACTOBACILLUS ACIDOPH & BULGAR 1 EACH PACKET PO SCH (09:36)
--- NOTE | 2022-05-06 13:19 | P.PN ---
Subjective Progress Note Date: 05/06/22 HISTORY OF PRESENT ILLNESS This is a 76 year old male with past medical history of hypertension, hyperlipidemia, diverticulitis, thyroid nodule, gastroesophageal reflux disease, mild persistent ALLERGIC asthma, benign prostatic hypertrophy vitamin D deficiency, constipation, ALLERGIC rhinitis, rosacea. Patient was diagnosed with Covid about 2 weeks ago and just finished course of Paxlovid. Unfortunately, patient has been feeling worse over the last couple of days especially yeste rday. He complains of generalized weakness and fatigue, poor oral intake. He has occasional cough. No dyspnea. He has had some diarrhea but no blood in the stools. No nausea or vomiting. His initial blood pressure was 160/93 and heart rate 63. EKG was a sinus rhythm with no acute ST changes. CBC was unremarkable. Sodium came back surprisingly at 116. Potassium 4.8, chloride 86, CO2 23, BUN 14 and creatinine 0.76. Blood sugar 117. D-dimer 0.28. Liver function tests were normal. Lactic acid 0.7. Troponin negative. ProBNP 27.Coronavirus PCR positive. Chest x-ray reveals no acute cardiopulmonary disease. Patient was given 2 L of IV fluid in the emergency center and admitted to cardiac stepdown unit. 05/06: Repeat sodium this morning is 122. Potassium 5.0, BUN 12 and creatinine 0.82. Magnesium 1.8. Serum osmolality 251. Urine sodium and osmolality have not been collected. Consult added for nephrology added. Patient has been afebrile, heart rate in the 60s and 70s, blood pressure 143/84. Pulse ox 98% on room air. 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 Consult for PT and OT in place. REVIEW OF SYSTEMS Constitutional: No fever, no chills, no night sweats. No weight change. No weakness, fatigue or lethargy. No daytime sleepiness. EENT: No headache. No blurred vision or double vision, no loss of vision. No loss of Hearing, no ringing in the ears, no dizziness. No nasal drainage or congestion. No epistaxis. No sore throat. Lungs: No shortness of breath, cough, no sputum production. No wheezing. Cardiovascular: No chest pain, no lower extremity edema. No palpitations. No paroxysmal nocturnal dyspnea. No orthopnea. No lightheadedness or dizziness. No syncopal episodes. Abdominal: No abdominal pain. No nausea, vomiting. No diarrhea. No constipation. No bloody or tarry stools. No loss of appetite. Genitourinary: No dysuria, increased frequency, urgency. No urinary retention. Musculoskeletal: No myalgias. No muscle weakness, no gait dysfunction, no frequent falls. No back pain. No neck pain. Integumentary: No wounds, no lesions. No rash or pruritus. No unusual bruising. No change in hair or nails. Neurologic: No aphasia. No facial droop. No change in mentation. No head injury. No headache. No paralysis. No paresthesia. Psychiatric: No depression. No anxiety. No mood swings. Endocrine: No abnormal blood sugars. No weight change. No excessive sweating or thirst. No cold intolerance. PHYSICAL EXAMINATION Gen: This is a 76 year old male, resting in bed and appears to be comfortable and in no acute distress. HEENT: Head is atraumatic, normocephalic. Pupils equal, round. Sclerae is anicteric. NECK: Supple. No JVD. No lymphadenopathy. No thyromegaly. LUNGS: Clear to auscultation. No wheezes or rhonchi. No intercostal retractions. HEART: Regular rate and rhythm. 2/6 systolic murmur at the left sternal border. ABDOMEN: Soft. Bowel sounds are present. No masses. No tenderness. EXTREMITIES: No pedal edema. No calf tenderness. NEUROLOGICAL: Patient is awake, alert and oriented x3. Cranial nerves 2 through 12 are grossly intact. Deep tendon reflexes 2+ and symmetrical ASSESSMENT AND PLAN 1. Hyponatremia. Obtain urine sodium and urine osmolality, and had nephrology consult. 2. Covid 19 infection. Patient completed course of Paxlovid. 3. Diarrhea most likely contributing to low sodium. 4. Hypertension. Continue patient on Coreg 6.25 mg twice daily, losartan 100 mg daily. 5. Hyperlipidemia. Continue atorvastatin 10 mg at bedtime. 6. Gastroesophageal reflux disease. Continue famotidin. 7. Mild persistent asthma. Continue albuterol inhaler every 6 hours as needed, Singulair 10 mg daily, Claritin 10 g at bedtime. 8. Gastroesophageal reflux disease and GI prophylaxis. Protonix 40 mg twice daily. 9. Chronic constipation. Continue MiraLAX 17 g daily. 10. DVT prophylaxis. Lovenox 40 mg subcu daily. DISCHARGE PLAN Most likely return home. PT and OT consults added. Impression and plan of care have been directed as dictated by the signing physician. Elodia Lyon nurse practitioner acting as scribe for signing physician. Objective - Vital Signs Vital signs: Vital Signs Temp 98.1 F 05/05/22 23:51 Pulse 68 05/06/22 04:00 Resp 18 05/06/22 04:00 BP 127/72 05/06/22 04:00 Pulse Ox 97 05/06/22 04:00 FiO2 Intake & Output 05/05/22 05/06/22 05/06/22 18:59 06:59 18:59 Intake Total 840 Output Total 500 200 Balance 340 -200 Intake: Oral 840 Output: Urine 500 200 Other: Voiding Method Toilet Toilet - Labs CBC & Chem 7: 05/05/22 00:52 05/06/22 06:34 Labs: Abnormal Lab Results - Last 24 Hours (Table) 05/05/22 05/05/22 Range/Units 10:50 10:50 Sodium 119 L* (137-145) mmol/L Chloride 89 L (98-107) mmol/L Osmolality 251 L (280-301) mosm/kg
[2022-05-06] MEDS ORDERED: FUROSEMIDE 10 MG/ML 2 ML VIAL IV STA (13:35)
[2022-05-06] MEDS: SODIUM CHLORIDE 0.9% 1,000 ML IV SCH (17:23)
[2022-05-06 17:58] LABS: African American GFR (CKD) >90 (>60 ml/min/1.73 sqM); Anion Gap 10 mmol/L; Blood Urea Nitrogen 16 mg/dL (9-20); Calcium 8.9 mg/dL (8.4-10.2); Carbon Dioxide 20 mmol/L (22-30); Chloride 91 mmol/L (98-107); Glucose 116 mg/dL (74-99); Non-African American GFR(CKD) 84 (>60 ml/min/1.73 sqM); Potassium 5.1 mmol/L (3.5-5.1); Sodium 121 mmol/L (137-145)
[2022-05-06] MEDS ORDERED: TOLVAPTAN 15 MG 1/2 TABLET PO ONE (18:11)
[2022-05-06] MEDS ORDERED: LACTULOSE 20 GM/30 ML CUP PO ONE (18:59)
[2022-05-06] MEDS: ATORVASTATIN 10 MG TAB PO SCH (20:27)
[2022-05-06] MEDS: LORATADINE 10 MG TAB PO SCH (20:27)
[2022-05-06 23:44] VITALS: RESP 16
[2022-05-07] MEDS: carvediloL 6.25 MG TAB PO SCH ×2 (06:26→18:13)
[2022-05-07] MEDS: PANTOPRAZOLE 40 MG TABLET PO SCH ×2 (06:26→18:13)
[2022-05-07] MEDS: CHOLECALCIFEROL 25 MCG (1000 IU) TABLET PO SCH (08:09)
[2022-05-07] MEDS: VIT A,C & E-LUTEIN-MINERALS 1 EACH TAB PO SCH ×2 (08:09→21:04)
[2022-05-07] MEDS: ASPIRIN 81 MG PO SCH (08:09)
[2022-05-07] MEDS: FAMOTIDINE 20 MG TAB PO SCH ×2 (08:09→21:04)
[2022-05-07] MEDS: ENOXAPARIN 40 MG/0.4 ML SYRINGE SQ SCH (08:09)
[2022-05-07] MEDS: polyethylene glycoL 3350 17 GM POWD.PACK PO SCH (08:09)
[2022-05-07] MEDS: MONTELUKAST 10 MG TAB PO SCH (08:09)
[2022-05-07] MEDS: LACTOBACILLUS ACIDOPH & BULGAR 1 EACH PACKET PO SCH (08:09)
[2022-05-07] MEDS: LOSARTAN 50 MG TAB PO SCH (08:09)
[2022-05-07] MEDS: KETOTIFEN 0.025% OPHTH DROPS 5 ML BTL BOTH EYES SCH (08:11)
[2022-05-07 08:55] LABS: African American GFR (CKD) 75 (>60 ml/min/1.73 sqM); Anion Gap 9 mmol/L; Blood Urea Nitrogen 21 mg/dL (9-20); Calcium 8.9 mg/dL (8.4-10.2); Carbon Dioxide 23 mmol/L (22-30); Chloride 93 mmol/L (98-107); Glucose 169 mg/dL (74-99); Magnesium 1.9 mg/dL (1.6-2.3); Non-African American GFR(CKD) 65 (>60 ml/min/1.73 sqM); Potassium 5.1 mmol/L (3.5-5.1); Sodium 125 mmol/L (137-145)
--- NOTE | 2022-05-07 12:25 | P.PN ---
Subjective Progress Note Date: 05/07/22 HISTORY OF PRESENT ILLNESS This is a 76 year old male with past medical history of hypertension, hyperlipidemia, diverticulitis, thyroid nodule, gastroesophageal reflux disease, mild persistent ALLERGIC asthma, benign prostatic hypertrophy vitamin D deficiency, constipation, ALLERGIC rhinitis, rosacea. Patient was diagnosed with Covid about 2 weeks ago and just finished course of Paxlovid. Unfortunately, patient has been feeling worse over the last couple of days especially yes terday. He complains of generalized weakness and fatigue, poor oral intake. He has occasional cough. No dyspnea. He has had some diarrhea but no blood in the stools. No nausea or vomiting. His initial blood pressure was 160/93 and heart rate 63. EKG was a sinus rhythm with no acute ST changes. CBC was unremarkable. Sodium came back surprisingly at 116. Potassium 4.8, chloride 86, CO2 23, BUN 14 and creatinine 0.76. Blood sugar 117. D-dimer 0.28. Liver function tests were normal. Lactic acid 0.7. Troponin negative. ProBNP 27.Coronavirus PCR positive. Chest x-ray reveals no acute cardiopulmonary disease. Patient was given 2 L of IV fluid in the emergency center and admitted to cardiac stepdown unit. 05/06: Repeat sodium this morning is 122. Potassium 5.0, BUN 12 and creatinine 0.82. Magnesium 1.8. Serum osmolality 251. Urine sodium and osmolality have not been collected. Consult added for nephrology added. Patient has been afebrile, heart rate in the 60s and 70s, blood pressure 143/84. Pulse ox 98% on room air. 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 Consult for PT and OT in place. 05/07/[address] Nunes today Patient is seen and evaluated in follow-up this morning nephrology on consult patient sodium slightly improved at 125 and was given a dose of Samsca along with IV Lasix yesterday recommending repeat labs. Patient is afebrile denies chest pain or shortness of breath. Patient is currently sitting up in his bed dressed expecting to go home today. Will need to discuss with nephrology about treatment plan and currently awaiting follow-up from today. Patient reports he has been battling his bowel habits for years and will have constipation and/or diarrhea. Patient denies diarrhea reports his last bowel movement was Thursday and denies feeling constipated at this time. Patient reports he is tolerating diet with no reports of nausea or vomiting noted. Patient was really looking forward to going home today. Nephrology consult pending. Labs reviewed: Sodium is 125, potassium 5.1, chloride 93, BUN 21, creatinine 1.09, magnesium 1.9, TSH 0.839 Review of systems: Constitutional: No reports of fatigue, fever, or chills Cardiovascular: No reports of chest pain or palpitations Respiratory: No reports of shortness of breath or cough GI: No reports of nausea, vomiting, or diarrhea, currently reporting no bowel movement since Thursday : No reports of dysuria or retention Neurovascular: No reports of weakness or numbness All medications have been reviewed Active Medications Acetaminophen (Acetaminophen Tab 325 Mg Tab) 650 mg PO Q6HR PRN PRN Reason: Mild Pain or Fever > 100.5 Albuterol Sulfate (Albuterol Hfa Inhaler) 2 puff INHALATION RT-Q6H PRN PRN Reason: Shortness Of Breath Aspirin (Aspirin 81 Mg) 81 mg PO DAILY [facility] Last Admin: 05/07/22 08:09 Dose: 81 mg Atorvastatin Calcium (Atorvastatin 10 Mg Tab) 10 mg PO HS [facility] Last Admin: 05/06/22 20:27 Dose: 10 mg Carvedilol (Carvedilol 6.25 Mg Tab) 6.25 mg PO AC-BID [facility] Last Admin: 05/07/22 06:26 Dose: 6.25 mg Cholecalciferol (Cholecalciferol 25 Mcg (1000 Iu) Tablet) 50 mcg PO DAILY [facility] Last Admin: 05/07/22 08:09 Dose: 50 mcg Enoxaparin Sodium (Enoxaparin 40 Mg/0.4 Ml Syringe) 40 mg SQ DAILY [facility] Last Admin: 05/07/22 08:09 Dose: 40 mg Famotidine (Famotidine 20 Mg Tab) 20 mg PO BID [facility] Last Admin: 05/07/22 08:09 Dose: 20 mg Ketotifen Fumarate (Ketotifen 0.025% Ophth Drops 5 Ml Btl) 1 drops BOTH EYES DAILY [facility] Last Admin: 05/07/22 08:11 Dose: 1 drops Lactobacillus Acidoph/Bulgaricus (Lactobacillus Acidoph & Bulgar 1 Each Packet) 1 each PO DAILY [facility] Last Admin: 05/07/22 08:09 Dose: 1 each Loratadine (Loratadine 10 Mg Tab) 10 mg PO HS [facility] Last Admin: 05/06/22 20:27 Dose: 10 mg Losartan Potassium (Losartan 50 Mg Tab) 100 mg PO DAILY [facility] Last Admin: 05/07/22 08:09 Dose: 100 mg Montelukast Sodium (Montelukast 10 Mg Tab) 10 mg PO DAILY [facility] Last Admin: 05/07/22 08:09 Dose: 10 mg Multivitamins/Minerals (Vit A,C & C-Whslxm-[place]jlu[place] 1 Each Tab) 1 each PO BID [facility] Last Admin: 05/07/22 08:09 Dose: 1 each Naloxone HCl (Naloxone 0.4 Mg/Ml 1 Ml Vial) 0.2 mg IV Q2M PRN PRN Reason: Opioid Reversal Pantoprazole Sodium (Pantoprazole 40 Mg Tablet) 40 mg PO AC-BID [facility] Last Admin: 05/07/22 06:26 Dose: 40 mg Polyethylene Glycol (Polyethylene Glycol 3350 17 Gm Powd.Pack) 17 gm PO DAILY [facility] Last Admin: 05/07/22 08:09 Dose: 17 gm Triamcinolone Acetonide (Triamcinolone 0.1% Cream 80 Gm Tube) 1 applic TOPICAL BID PRN PRN Reason: Rash PHYSICAL EXAMINATION: Gen: This is a 76 year old male, sitting up in bed dressed in his street clothes, appears to be comfortable and in no acute distress. HEENT: Head is atraumatic, normocephalic. Pupils equal, round. Sclerae is anicteric. NECK: Supple. No JVD. No lymphadenopathy. No thyromegaly. LUNGS: Clear to auscultation. No wheezes or rhonchi. No intercostal retractions. HEART: Regular rate and rhythm. S1, S2 are muffled ABDOMEN: Soft. Bowel sounds are present. No masses. No tenderness. EXTREMITIES: No pedal edema. No calf tenderness. NEUROLOGICAL: Patient is awake, alert and oriented x3. Cranial nerves 2 through 12 are grossly intact. No focal deficits noted ASSESSMENT: 1. Hyponatremia. Obtain urine sodium and urine osmolality, and had nephrology consult. 2. Covid 19 infection. Patient completed course of Paxlovid and took last dose on Thursday 3. Diarrhea most likely contributing to low sodium. 4. Hypertension. Continue patient on Coreg 6.25 mg twice daily, losartan 100 mg daily. 5. Hyperlipidemia. Continue atorvastatin 10 mg at bedtime. 6. Gastroesophageal reflux disease. Continue famotidine. 7. Mild persistent asthma. Continue albuterol inhaler every 6 hours as needed, Singulair 10 mg daily, Claritin 10 g at bedtime. 8. Gastroesophageal reflux disease and GI prophylaxis. Protonix 40 mg twice daily. 9. Chronic constipation. Continue MiraLAX 17 g daily. 10. DVT prophylaxis. Lovenox 40 mg subcu daily. PLAN: Recommend to continue with current medications and management with nephrology following. Patient is status post 1 dose of Samsca along with IV Lasix yesterday and sodium improved to 125 today Recommend monitoring strict intake and output and continue fluid restrictions Patient was seen and evaluated by PT/OT an independent with no weakness or gait dysfunction noted Encouraged oral intake Patient is anxious to go home and will discuss further with nephrology and appreciate input and recommendations The impression and plan of care has been dictated by Yanira Zimmerman, Nurse Practitioner as directed. MD Willow I have performed a history and examination and MDM of this patient, discussed the same with the dictator, and agree with the dictator's assessment and plan as written ,documented as a scribe. Based on total visit time, I have performed more than 50% of the visit. Objective - Vital Signs Vital signs: Vital Signs Temp 98.1 F 05/06/22 23:43 Pulse 73 05/07/22 08:27 Resp 16 05/07/22 08:27 BP 113/59 05/07/22 08:27 Pulse Ox 96 05/07/22 08:27 FiO2 Intake & Output 05/06/22 05/07/22 05/07/22 18:59 06:59 18:59 Intake Total 378 260 180 Balance 378 260 180 Intake: IV 20 10 Invasive Line 1 20 10 Oral 358 250 180 Other: Voiding Method Toilet Toilet # Voids 2 - Labs CBC & Chem 7: 05/05/22 00:52 05/07/22 08:17 Labs: Abnormal Lab Results - Last 24 Hours (Table) 05/06/22 05/07/22 Range/Units 17:33 08:17 Sodium 121 L 125 L (137-145) mmol/L Chloride 91 L 93 L (98-107) mmol/L Carbon Dioxide 20 L (22-30) mmol/L BUN 21 H (9-20) mg/dL Glucose 116 H 169 H (74-99) mg/dL
--- NOTE | 2022-05-07 12:29 | P.NPCON ---
History of Present Illness - Reason for Consult hyponatremia - History of Present Illness Reason for consultation: Hyponatremia History of present illness: The patient is a 76-year-old male seen in [facility] for hyponatremia. Patient came to the hospital on 05/05/2022 due to generally not feeling well. Patient states he was diagnosed with COVID-19 infection earlier this month. He denies any fever or chills. Admits to having a difficult time sleeping and weakness. No vomiting or diarrhea. Oral intake has been good. Patient states he's been drinking a lot of water to help with his constipation. Patient states he's been drinking at least 512 ounce bottles of water daily and also drinks 2-3 cups of coffee as well as a glass of milk daily. Denies alcohol use. Sodium level was 116 on admission and he was maintained on normal saline. Sodium level improved to 122 and then drop back down to 121. Fluids were discontinued and he received a dose of IV Lasix as well as Samsca yesterday. Sodium level today is up to 125. He denies any history of malignancy. Denies use of diuretics. Denies personal or family history of renal disease. GFR at baseline. No history of diabetes. Vital signs are stable. General: Awake. No acute distress. HEENT: Head exam is unremarkable. LUNGS: Breath sounds decreased. HEART: Rate and Rhythm are regular. ABDOMEN: Soft, no distention. EXTREMITITES: No edema. Past Medical History Past Medical History: Asthma, Cancer, GERD/Reflux, Hyperlipidemia, Hypertension, Osteoarthritis (OA), Prostate Disorder, Skin Disorder Additional Past Medical History / Comment(s): hiatal hernia, THYROID NODULES., HX SKIN CANCER , rosacea, cyst on kidney, History of Any Multi-Drug Resistant Organisms: None Reported Past Surgical History: Cholecystectomy, Orthopedic Surgery, Prostate Surgery Additional Past Surgical History / Comment(s): TURP, colonoscopy , EGD., arthroscopy rt knee, skin cancer removed from neck and face Past Anesthesia/Blood Transfusion Reactions: Motion Sickness Past Psychological History: No Psychological Hx Reported Smoking Status: Never smoker Past Alcohol Use History: Rare Past Drug Use History: None Reported - Past Family History Father Family Medical History: CVA/TIA Mother Family Medical History: No Reported History Medications and Allergies Home Medications Medication Instructions Recorded Confirmed Type Aspirin 81 mg PO DAILY 03/20/15 05/05/22 History Losartan/Hydrochlorothiazide 1 tab PO DAILY 04/30/18 05/05/22 History [Losartan-Hctz 100-25 mg Tab] Spironolactone 25 mg PO DAILY 04/30/18 05/05/22 History Ubidecarenone [Co Q-10] 100 mg PO HS 04/30/18 05/05/22 History Albuterol Sulfate [Proair Hfa] 1 - 2 puff INHALATION RT-Q6H PRN 07/23/18 05/05/22 History L.acidoph,Paracasei, B.lactis 1 cap PO DAILY 07/23/18 05/05/22 History [Probiotic] Montelukast [Singulair] 10 mg PO DAILY PRN 07/23/18 05/05/22 History Olopatadine HCl [Patanol 0.1%] 1 applic BOTH EYES DAILY 07/23/18 05/05/22 History Omeprazole [PriLOSEC] 20 mg PO BID 07/23/18 05/05/22 History polyethylene glycoL 3350 [Miralax] 17 gm PO DAILY 09/06/19 05/05/22 History Ammonium Lactate Cream [Lac-Hydrin 1 applic TOPICAL BID 05/05/22 05/05/22 History 12% Cream] Cetirizine HCl [Zyrtec] 10 mg PO HS 05/05/22 05/05/22 History Cholecalciferol [Vitamin D3 (25 50 mcg PO DAILY 05/05/22 05/05/22 History Mcg = 1000 Iu)] Clindamycin Topical Soln 1 applic TOPICAL BID PRN 05/05/22 05/05/22 History [Cleocin-T Topical Soln] Hydrocortisone Cream 1 applic TOPICAL BID PRN 05/05/22 05/05/22 History [Hydrocortisone 2.5% Cream] Neuriva 100 mg PO DAILY 05/05/22 05/05/22 History Rosuvastatin Calcium 5 mg PO HS 05/05/22 05/05/22 History Vit C/E/Zn/Coppr/Lutein/Zeaxan 1 cap PO BID 05/05/22 05/05/22 History [Preservision Areds 2 Softgel] carvediloL [Coreg] 6.25 mg PO BID 05/05/22 05/05/22 History metroNIDAZOLE 0.75% CREAM 1 applic TOPICAL BID 05/05/22 05/05/22 History [Metrocream 0.75%] Allergies Allergy/AdvReac Type Severity Reaction Status Date / Time amlodipine besylate Allergy Rash/Hives Verified 05/05/22 08:29 [From [facility]] hydralazine AdvReac Unknown Rash/Hives, Verified 05/05/22 08:29 Upset Stomach Physical Exam Vitals: Vital Signs Temp Pulse Resp BP Pulse Ox 05/07/22 12:00 71 16 116/73 96 05/07/22 08:27 73 16 113/59 96 05/07/22 08:00 73 16 05/07/22 04:00 76 16 134/74 97 05/06/22 23:43 98.1 F 68 16 112/72 95 05/06/22 20:00 72 18 98/64 97 05/06/22 17:02 76 18 140/92 97 05/06/22 13:53 18 Intake and Output 05/06/22 05/07/22 05/07/22 22:59 06:59 14:59 Intake Total 500 180 Balance 500 180 Intake: IV 10 Invasive Line 1 10 Oral 490 180 Other: Voiding Method Toilet Toilet # Voids 2 Results - Lab Results Most recent lab results Calcium 8.9 mg/dL (8.4-10.2) 05/07/22 08:17 Magnesium 1.9 mg/dL (1.6-2.3) 05/07/22 08:17 05/05/22 00:52 05/07/22 08:17 Assessment and Plan Plan: Assessment: 1. Hyponatremia. Initially hypovolemic and improved with normal saline. Now euvolemic. Component of excessive fluid intake. No history of malignancy. Not on any diuretics. Sodium level 125 today. TSH normal. Urine sodium 91 and urine osmolarity 296. 2. Benign hypertension. Controlled. 3. COVID-19 infection. Plan: Maintain fluid restriction. Encourage oral intake. Repeat Samsca today. Repeat labs in the morning. Thank you for the consultation. I will continue to follow the patient with you during his hospital stay.
[2022-05-07] MEDS ORDERED: TOLVAPTAN 15 MG 1/2 TABLET PO ONE (13:00)
[2022-05-07] MEDS: ATORVASTATIN 10 MG TAB PO SCH (21:04)
[2022-05-07] MEDS: LORATADINE 10 MG TAB PO SCH (21:04)
[2022-05-08 04:23] VITALS: TEMP 97.9
[2022-05-08] MEDS: PANTOPRAZOLE 40 MG TABLET PO SCH (05:40)
[2022-05-08] MEDS: carvediloL 6.25 MG TAB PO SCH (05:40)
[2022-05-08 08:14] LABS: Calcium 8.9 mg/dL (8.4-10.2); Magnesium 1.9 mg/dL (1.6-2.3); Potassium 5.1 mmol/L (3.5-5.1)
[2022-05-08] MEDS: ASPIRIN 81 MG PO SCH (08:50)
[2022-05-08] MEDS: ENOXAPARIN 40 MG/0.4 ML SYRINGE SQ SCH (08:50)
[2022-05-08] MEDS: MONTELUKAST 10 MG TAB PO SCH (08:50)
[2022-05-08] MEDS: LACTOBACILLUS ACIDOPH & BULGAR 1 EACH PACKET PO SCH (08:50)
[2022-05-08] MEDS: LOSARTAN 50 MG TAB PO SCH (08:50)
[2022-05-08] MEDS: KETOTIFEN 0.025% OPHTH DROPS 5 ML BTL BOTH EYES SCH (08:50)
[2022-05-08] MEDS: FAMOTIDINE 20 MG TAB PO SCH (08:50)
[2022-05-08] MEDS: polyethylene glycoL 3350 17 GM POWD.PACK PO SCH (08:50)
[2022-05-08] MEDS: CHOLECALCIFEROL 25 MCG (1000 IU) TABLET PO SCH (08:50)
[2022-05-08] MEDS: VIT A,C & E-LUTEIN-MINERALS 1 EACH TAB PO SCH (08:50)
--- NOTE | 2022-05-08 11:48 | P.PN ---
Subjective Patient is seen in follow-up for hyponatremia. Sodium level improved. Oral intake is good. No vomiting or diarrhea. No edema. Vital signs are stable. General: No acute distress. HEENT: Head exam is unremarkable. LUNGS: Breath sounds decreased. HEART: Rate and Rhythm are regular. ABDOMEN: No distention. Nontender. EXTREMITITES: No edema. Objective - Vital Signs Vital signs: Vital Signs Temp 97.9 F 05/08/22 08:48 Pulse 67 05/08/22 08:48 Resp 16 05/08/22 08:48 BP 135/68 05/08/22 08:48 Pulse Ox 96 05/08/22 08:48 FiO2 21 05/07/22 19:54 Intake & Output 05/07/22 05/08/22 05/08/22 18:59 06:59 18:59 Intake Total 534 0 236 Balance 534 0 236 Intake: Oral 534 0 236 Other: Voiding Method Toilet Toilet Toilet # Voids 2 - Labs CBC & Chem 7: 05/05/22 00:52 05/08/22 07:04 Labs: Abnormal Lab Results - Last 24 Hours (Table) 05/08/22 Range/Units 07:04 Sodium 130 L (137-145) mmol/L Chloride 97 L (98-107) mmol/L BUN 25 H (9-20) mg/dL Glucose 114 H (74-99) mg/dL Assessment and Plan Plan: Assessment: 1. Hyponatremia. Initially hypovolemic and improved with normal saline. Now euvolemic. Component of excessive fluid intake. No history of malignancy. Not on any diuretics. Sodium level 130 today. TSH normal. Urine sodium 91 and urine osmolarity 296. 2. Benign hypertension. Controlled. 3. COVID-19 infection. Plan: Encourage oral intake, especially protein. Advised patient to maintain 40-45 ounces of fluid restriction per day upon discharge. Repeat BMP 2-3 days postdischarge. Follow up outpatient in 1 week.
[2022-05-08 12:18] VITALS: BP 110/75; PULSE 68
--- NOTE | 2022-05-11 11:38 | P.PN ---
Subjective Progress Note Date: 05/08/22 HISTORY OF PRESENT ILLNESS This is a 76 year old male with past medical history of hypertension, hyperlipidemia, diverticulitis, thyroid nodule, gastroesophageal reflux disease, mild persistent ALLERGIC asthma, benign prostatic hypertrophy vitamin D deficiency, constipation, ALLERGIC rhinitis, rosacea. Patient was diagnosed with Covid about 2 weeks ago and just finished course of Paxlovid. Unfortunately, patient has been feeling worse over the last couple of days especially yest erday. He complains of generalized weakness and fatigue, poor oral intake. He has occasional cough. No dyspnea. He has had some diarrhea but no blood in the stools. No nausea or vomiting. His initial blood pressure was 160/93 and heart rate 63. EKG was a sinus rhythm with no acute ST changes. CBC was unremarkable. Sodium came back surprisingly at 116. Potassium 4.8, chloride 86, CO2 23, BUN 14 and creatinine 0.76. Blood sugar 117. D-dimer 0.28. Liver function tests were normal. Lactic acid 0.7. Troponin negative. ProBNP 27.Coronavirus PCR positive. Chest x-ray reveals no acute cardiopulmonary disease. Patient was given 2 L of IV fluid in the emergency center and admitted to cardiac stepdown unit. 05/06: Repeat sodium this morning is 122. Potassium 5.0, BUN 12 and creatinine 0.82. Magnesium 1.8. Serum osmolality 251. Urine sodium and osmolality have not been collected. Consult added for nephrology added. Patient has been afebrile, heart rate in the 60s and 70s, blood pressure 143/84. Pulse ox 98% on room air. monitor tech has been a sinus rhythm. Consult for PT and OT in place. 05/08: Patient is sitting up in a chair no apparent distress, he denies any chest pain, shortness breath, he continues to have a low sodium, better than it was yesterday, we'll keep the patient in the hospital for another 24 hours, we'll continue with fluid resection, keep the patient off hydrochlorothiazide, repeat his labs tomorrow morning if his sodium is back to normal, we can send the patient home tomorrow morning a follow-up with me as an outpatient in 1-2 days to recheck his BMP and serum hospitality, follow-up with nephrology in 1 week as well. Patient did receive Tolvaptan in the hospital for euvolemic hyponatremia REVIEW OF SYSTEMS Constitutional: No fever, no chills, no night sweats. No weight change. No weakness, fatigue or lethargy. No daytime sleepiness. EENT: No headache. No blurred vision or double vision, no loss of vision. No loss of Hearing, no ringing in the ears, no dizziness. No nasal drainage or congestion. No epistaxis. No sore throat. Lungs: No shortness of breath, cough, no sputum production. No wheezing. Cardiovascular: No chest pain, no lower extremity edema. No palpitations. No paroxysmal nocturnal dyspnea. No orthopnea. No lightheadedness or dizziness. No syncopal episodes. Abdominal: No abdominal pain. No nausea, vomiting. No diarrhea. No constipation. No bloody or tarry stools. No loss of appetite. Genitourinary: No dysuria, increased frequency, urgency. No urinary retention. Musculoskeletal: No myalgias. No muscle weakness, no gait dysfunction, no frequent falls. No back pain. No neck pain. Integumentary: No wounds, no lesions. No rash or pruritus. No unusual bruising . No change in hair or nails. Neurologic: No aphasia. No facial droop. No change in mentation. No head injury. No headache. No paralysis. No paresthesia. Psychiatric: No depression. No anxiety. No mood swings. Endocrine: No abnormal blood sugars. No weight change. No excessive sweating or thirst. No cold intolerance. PHYSICAL EXAMINATION Gen: This is a 76 year old male, resting in bed and appears to be comfortable and in no acute distress. HEENT: Head is atraumatic, normocephalic. Pupils equal, round. Sclerae is anicteric. NECK: Supple. No JVD. No lymphadenopathy. No thyromegaly. LUNGS: Clear to auscultation. No wheezes or rhonchi. No intercostal retractions . HEART: Regular rate and rhythm. 2/6 systolic murmur at the left sternal border. ABDOMEN: Soft. Bowel sounds are present. No masses. No tenderness. EXTREMITIES: No pedal edema. No calf tenderness. NEUROLOGICAL: Patient is awake, alert and oriented x3. Cranial nerves 2 through 12 are grossly intact. Deep tendon reflexes 2+ and symmetrical ASSESSMENT AND PLAN 1. Hypovolemic hyponatremia initially recovered well with with IV hydration and with the patient became euvolemic his sodium stabilized , at that point he was placed on fluid restriction after he did not respond to the IV Lasix along with IV fluid and that he was started on Tolvaptan he did receive 7.5 mg 1, and his sodium started to respond very well his last sodium is 128. 2. Covid 19 infection. Patient completed course of Paxlovid. 3. Diarrhea most likely contributing to low sodium. avoid hydrochlorothiazide . 4. Hypertension. Continue patient on Coreg 6.25 mg twice daily, losartan 100 mg daily. avoid hydrochlorothiazide . 5. Hyperlipidemia. Continue atorvastatin 10 mg at bedtime. monitor the patient panel, keep LDL 55-70. 6. Gastroesophageal reflux disease. Continue famotidin and Protonix. 7. Mild persistent asthma. Continue albuterol inhaler every 6 hours as needed, Singulair 10 mg daily, Claritin 10 g at bedtime. 8. Gastroesophageal reflux disease and GI prophylaxis. Protonix 40 mg twice daily. 9. Chronic constipation. Continue MiraLAX 17 g daily, patient did receive a dose of lactulose 15 mL 1. 10. DVT prophylaxis. Lovenox 40 mg subcu daily. 11. Home tomorrow morning. Objective - Vital Signs Vital signs: Vital Signs Temp 97.9 F 05/08/22 08:48 Pulse 68 05/08/22 12:17 Resp 16 05/08/22 12:17 BP 110/75 05/08/22 12:17 Pulse Ox 95 05/08/22 12:17 FiO2 21 05/07/22 19:54 - Labs CBC & Chem 7: 05/05/22 00:52 05/08/22 07:04
--- NOTE | 2022-05-11 11:41 | P.DS ---
Providers Date of admission: 05/05/22 03:19 Attending physician: Loki Nunes Consults: 05/06/22 13:12 Consult Physician Routine Consulting Provider: Jeferson Mcmahan Consult Reason/Comments: hyponatremia Do you want consulting provider notified?: Yes Primary care physician: Loki Nunes [facility] Course: HISTORY OF PRESENT ILLNESS This is a 76 year old male with past medical history of hypertension, hyperlipidemia, diverticulitis, thyroid nodule, gastroesophageal reflux disease, mild persistent ALLERGIC asthma, benign prostatic hypertrophy vitamin D deficiency, constipation, ALLERGIC rhinitis, rosacea. Patient was diagnosed with Covid about 2 weeks ago and just finished course of Paxlovid. Unfortunately, patient has been feeling worse over the last couple of days especially y esterday. He complains of generalized weakness and fatigue, poor oral intake. He has occasional cough. No dyspnea. He has had some diarrhea but no blood in the stools. No nausea or vomiting. His initial blood pressure was 160/93 and heart rate 63. EKG was a sinus rhythm with no acute ST changes. CBC was unremarkable. Sodium came back surprisingly at 116. Potassium 4.8, chloride 86, CO2 23, BUN 14 and creatinine 0.76. Blood sugar 117. D-dimer 0.28. Liver function tests were normal. Lactic acid 0.7. Troponin negative. ProBNP 27.Coronavirus PCR positive. Chest x-ray reveals no acute cardiopulmonary disease. Patient was given 2 L of IV fluid in the emergency center and admitted to cardiac stepdown unit. 05/06: Repeat sodium this morning is 122. Potassium 5.0, BUN 12 and creatinine 0.82. Magnesium 1.8. Serum osmolality 251. Urine sodium and osmolality have not been collected. Consult added for nephrology added. Patient has been afebrile, heart rate in the 60s and 70s, blood pressure 143/84. Pulse ox 98% on room air. clothing supervisor has been a sinus rhythm. Consult for PT and OT in place. 05/08: Patient is sitting up in a chair no apparent distress, he denies any chest pain, shortness breath, he continues to have a low sodium, better than it was yesterday, we'll keep the patient in the hospital for another 24 hours, we'll continue with fluid resection, keep the patient off hydrochlorothiazide, repeat his labs tomorrow morning if his sodium is back to normal, we can send the patient home tomorrow morning a follow-up with me as an outpatient in 1-2 days t o recheck his BMP and serum hospitality, follow-up with nephrology in 1 week as well. Patient did receive Tolvaptan in the hospital for euvolemic hyponatremia Discharge diagnoses: 1. Hypovolemic hyponatremia on initial presentation. 2. Euvolemic hyponatremia status post Tolvaptan and fluid restriction. 3. Recent COVID-19 infection treated with Paxlovid. 4. Diarrhea most likely contributing to low sodium 5. Hypertension 6. Hyperlipidemia. 7. Gastroesophageal reflux disease. 8. Mild persistent asthma 9. Gastroesophageal reflux disease and GI prophylaxis. 10. Chronic constipation Patient Condition at Discharge: Good Plan - Discharge Summary New Discharge Prescriptions: New Losartan [Cozaar] 100 mg PO DAILY #90 tab Continue Aspirin 81 mg PO DAILY Ubidecarenone [Co Q-10] 100 mg PO HS Montelukast [Singulair] 10 mg PO DAILY PRN PRN Reason: Allergy Symptoms Albuterol Sulfate [Proair Hfa] 1 - 2 puff INHALATION RT-Q6H PRN PRN Reason: Shortness Of Breath Omeprazole [PriLOSEC] 20 mg PO BID Olopatadine HCl [Patanol 0.1%] 1 applic BOTH EYES DAILY L.acidoph,Paracasei, B.lactis [Probiotic] 1 cap PO DAILY polyethylene glycoL 3350 [Miralax] 17 gm PO DAILY carvediloL [Coreg] 6.25 mg PO BID Cetirizine HCl [Zyrtec] 10 mg PO HS metroNIDAZOLE 0.75% CREAM [Metrocream 0.75%] 1 applic TOPICAL BID Hydrocortisone Cream [Hydrocortisone 2.5% Cream] 1 applic TOPICAL BID PRN PRN Reason: Rash Neuriva 100 mg PO DAILY Cholecalciferol [Vitamin D3 (25 Mcg = 1000 Iu)] 50 mcg PO DAILY Rosuvastatin Calcium 5 mg PO HS Vit C/E/Zn/Coppr/Lutein/Zeaxan [Preservision Areds 2 Softgel] 1 cap PO BID Clindamycin Topical Soln [Cleocin-T Topical Soln] 1 applic TOPICAL BID PRN PRN Reason: outbreaks Ammonium Lactate Cream [Lac-Hydrin 12% Cream] 1 applic TOPICAL BID Discontinued Losartan/Hydrochlorothiazide [Losartan-Hctz 100-25 mg Tab] 1 tab PO DAILY Spironolactone 25 mg PO DAILY Discharge Medication List Aspirin 81 mg PO DAILY 03/20/15 [History] Ubidecarenone [Co Q-10] 100 mg PO HS 04/30/18 [History] Albuterol Sulfate [Proair Hfa] 1 - 2 puff INHALATION RT-Q6H PRN 07/23/18 [History] L.acidoph,Paracasei, B.lactis [Probiotic] 1 cap PO DAILY 07/23/18 [History] Montelukast [Singulair] 10 mg PO DAILY PRN 07/23/18 [History] Olopatadine HCl [Patanol 0.1%] 1 applic BOTH EYES DAILY 07/23/18 [History] Omeprazole [PriLOSEC] 20 mg PO BID 07/23/18 [History] polyethylene glycoL 3350 [Miralax] 17 gm PO DAILY 09/06/19 [History] Ammonium Lactate Cream [Lac-Hydrin 12% Cream] 1 applic TOPICAL BID 05/05/22 [History] Cetirizine HCl [Zyrtec] 10 mg PO HS 05/05/22 [History] Cholecalciferol [Vitamin D3 (25 Mcg = 1000 Iu)] 50 mcg PO DAILY 05/05/22 [History] Clindamycin Topical Soln [Cleocin-T Topical Soln] 1 applic TOPICAL BID PRN 05/05/22 [History] Hydrocortisone Cream [Hydrocortisone 2.5% Cream] 1 applic TOPICAL BID PRN 05/05/22 [History] Neuriva 100 mg PO DAILY 05/05/22 [History] Rosuvastatin Calcium 5 mg PO HS 05/05/22 [History] Vit C/E/Zn/Coppr/Lutein/Zeaxan [Preservision Areds 2 Softgel] 1 cap PO BID 05/05/22 [History] carvediloL [Coreg] 6.25 mg PO BID 05/05/22 [History] metroNIDAZOLE 0.75% CREAM [Metrocream 0.75%] 1 applic TOPICAL BID 05/05/22 [History] Losartan [Cozaar] 100 mg PO DAILY #90 tab 05/08/22 [Rx] Follow up Appointment(s)/Referral(s): Loki Nunes MD [Primary Care Provider] - 05/15/22 2:15 pm Jeferson Mcmahan DO [STAFF PHYSICIAN] - 1 Week (please call office to set up an appointment) Patient Instructions/Handouts: Hyponatremia (DC) Activity/Diet/Wound Care/Special Instructions: Please follow a 40-45 ounce fluid restriction per day Discharge Disposition: HOME WITH HOME HEALTH SERVICES
== END 2022-05-08 15:44 | disposition home health service (06) | DRG 640 ==
LOC: EC 23:54 → 4SSUR 05-05 03:19 → 3SCARD 05-05 03:35
PROVIDERS: ADMIT Internal Medicine; ATTEND Internal Medicine
DX: E87.1 Hypo-osmolality and hyponatremia (principal); U07.1 COVID-19; K57.92 Diverticulitis of intestine, part unspecified, without perforation or abscess without bleeding; I10 Essential (primary) hypertension; E78.5 Hyperlipidemia, unspecified; E04.2 Nontoxic multinodular goiter; K21.9 Gastro-esophageal reflux disease without esophagitis; J45.30 Mild persistent asthma, uncomplicated; N40.0 Benign prostatic hyperplasia without lower urinary tract symptoms; E55.9 Vitamin D deficiency, unspecified; L71.9 Rosacea, unspecified; J30.9 Allergic rhinitis, unspecified; R19.7 Diarrhea, unspecified; E86.1 Hypovolemia; K59.09 Other constipation; Z79.82 Long term (current) use of aspirin; Z79.899 Other long term (current) drug therapy; Z85.828 Personal history of other malignant neoplasm of skin; Z90.49 Acquired absence of other specified parts of digestive tract; Z88.8 Allergy status to other drugs, medicaments and biological substances
CPT/HCPCS: 36415; 71046; 80048; 80053; 83605; 83735; 83880; 83930; 83935; 84300; 84443; 84484; 85025; 85379; 85610; 85730; 87635; 93005; 94760; 99285

== ENCOUNTER → 2022-09-01 | Outpatient (CLI) | payer MEDICARE ==
[2022-09-01 20:32] LABS: African American GFR (CKD) 83.2 (60.0-200.0); Anion Gap 11.8 mmol/L (10.00-18.00); BUN/Creat Ratio 19.9 Ratio (12.00-20.00); Blood Urea Nitrogen 19.9 mg/dL (9.0-27.0); Calcium 9.1 mg/dL (8.7-10.3); Carbon Dioxide 22.2 mmol/L (20.0-27.5); Non-African American GFR(CKD) 71.8 (60.0-200.0); Potassium 4.3 mmol/L (3.5-5.5)
== END | disposition home or self-care (01) ==
LOC: LABWHC1 13:40
PROVIDERS: ATTEND Nurse Practitioner Adult Health
DX: I10 Essential (primary) hypertension (principal)
CPT/HCPCS: 36415; 80048

== ENCOUNTER 2022-09-03 08:21 | Day surgery (SDC) | payer MEDICARE ==
[2022-09-01 17:47] VITALS: BMI 27.8
[2022-09-03] MEDS ORDERED: LACTATED RINGERS 1,000 ML IV SCH (08:40)
[2022-09-03 08:55] VITALS: RESP 16; TEMP 97.5
[2022-09-03] MEDS ORDERED: PROPOFOL 10 MG/ML 20 ML VIAL IV ONE (10:04)
[2022-09-03] MEDS ORDERED: LIDOCAINE 2% INJ 20 MG/ML (2 ML VIAL) ONE (10:04)
--- NOTE | 2022-09-03 10:20 | P.PCN ---
Date of Procedure: 09/03/22 Procedure(s) Performed: BRIEF HISTORY: Patient is a 76-year-old, pleasant, white male scheduled for an upper endoscopy as a part of evaluation of long-standing history of GERD and chronic hoarseness. PROCEDURE PERFORMED: Esophagogastroduodenoscopy biopsy. PREOPERATIVE DIAGNOSIS: Long-standing history of GERD/chronic hoarseness. IV sedation per anesthesia. PROCEDURE: After informed consent was obtained, the patient was brought into the endoscopy unit. IV sedation was administered by Anesthesia under continuous monitoring. Initially the Olympus GIF-140 video endoscope was inserted into the mouth. Esophagus intubated without any difficulty. It was gradually advanced into the stomach and duodenum and carefully examined. The bulb and the second part of the duodenum appeared normal. The scope at this time was withdrawn to the stomach, adequately insufflated with air, and upon careful examination, mucosa of the antrum, appeared normal. In the proximal body the stomach there was some gastritis noted and biopsies were done from this area. body, cardia and the fundus appeared normal. The scope was then withdrawn into the esophagus. mall hiatal hernia noted.The GE junction was located at 39 cm from the incisors. The esophagus appeared normal. There were no erosions or ulcerations seen, multiple biopsies were done from the mid and distal esophagus and the patient tolerated the procedure well. IMPRESSION: 1. Gastritis involving the proximal body the stomach status post biopsy . 2..Small hiatal hernia but no evidence of esophagitis or Melendez's RECOMMENDATIONS: The findings of this examination were discussed with the patient .as well as his family. He was advised to follow with the biopsy results. He will continue with omeprazole 20 mg daily and follow antireflux measures.
[2022-09-03 11:09] VITALS: BP 137/84; PULSE 55
== END 2022-09-03 11:21 | disposition home or self-care (01) ==
LOC: ORWHC2ENDO 08:21
PROVIDERS: ATTEND Internal Medicine Gastroenterology
DX: K29.50 Unspecified chronic gastritis without bleeding (principal); K44.9 Diaphragmatic hernia without obstruction or gangrene; K21.9 Gastro-esophageal reflux disease without esophagitis; I10 Essential (primary) hypertension; E78.5 Hyperlipidemia, unspecified; J45.909 Unspecified asthma, uncomplicated; E07.9 Disorder of thyroid, unspecified; F41.8 Other specified anxiety disorders; K59.09 Other constipation; Z79.51 Long term (current) use of inhaled steroids; Z79.899 Other long term (current) drug therapy; Z79.890 Hormone replacement therapy
CPT/HCPCS: 88305; 88342; 43239; J2704; J2001

== ENCOUNTER → 2022-09-16 | Outpatient (CLI) | payer MEDICARE ==
--- NOTE | 2022-09-16 19:09 | US ---
EXAMINATION TYPE: US thyroid st tissue head/neck DATE OF EXAM: 09/16/2022 COMPARISON: 03/17/2022 CLINICAL INDICATION: Male, 76 years old with history of E04.2 MULTINODULAR GOITER; GLAND SIZE: Right Lobe: 5.0 x 2.1 x 2.1 cm Overall Parenchyma: homogenous Left Lobe: 5.5 x 1.7 x 1.5 cm Overall Parenchyma: homogeneous Isthmus Thickness: 0.6 cm NODULES RIGHT: # of nodules measured on right: 2 1. 0.6 X 0.5 x 0.6 cm, upper mid, mixed cystic and solid, hypoechoic TR 3 nodule, which is wider th an tall, with smooth margins, without echogenic foci. Prior size: 0.7 x 0.7 x 0.6 cm 2. 1.6 X 1.5 x 1.3 cm, lower mid, cystic or almost completely cystic, anechoic TR 3 nodule, which i s taller than wide, with smooth margins, without echogenic foci. Prior size: 1.5 x 1.2 x 1.5 cm LEFT: # of nodules measured on left: 1 1. 6 x 6 x 5 mm hypoechoic solid nodule at the upper pole. Prior size: 6 x 6 x 5 mm. ISTHMUS: # of nodules measured in the isthmus: 1 1. 1.5 X 0.8 x 1.6 cm, lower mid, benign cyst. Prior size: 1.0 x 1.1 x 0.9 cm Bilateral neck scanned, no evidence of lymphadenopathy. IMPRESSION: 1. Consider multinodular goiter. A couple TR 3 nodules on the right remain unchanged measuring up to 1.6 cm. These can be followed and FNA if they reach 2.5 cm. 2. Solid 6 mm TR 4 nodule on the left remains unchanged.
== END | disposition home or self-care (01) ==
LOC: RADUSWWP 13:52
PROVIDERS: ATTEND Internal Medicine Endocrinology, Diabetes & Metabolism
DX: E04.2 Nontoxic multinodular goiter (principal)
CPT/HCPCS: 76536; 84443

== ENCOUNTER → 2022-12-02 | Outpatient (CLI) | payer MEDICARE ==
--- NOTE | 2022-12-02 12:02 | US ---
EXAMINATION TYPE: US carotid duplex BILAT DATE OF EXAM: 12/02/2022 COMPARISON: NONE CLINICAL INDICATION: Male, 77 years old with history of I65.23 OCCLUSION AND STENOSIS OF BILATERAL; TECHNIQUE: Carotid duplex ultrasound examination. Indirect Doppler criteria was utilized. FINDINGS: EXAM MEASUREMENTS: RIGHT: Peak Systolic Velocity (PSV) cm/sec ----- Right CCA: 78.6 ----- Right ICA: 76.5 ----- Right ECA: 61.7 ICA/CCA ratio: 1.0 RIGHT: End Diastole cm/sec ----- Right CCA: 14.8 ----- Right ICA: 19.5 ----- Right ECA: 5.3 LEFT: Peak Systolic Velocity (PSV) cm/sec ----- Left CCA: 91.2 ----- Left ICA: 92.0 ----- Left ECA: 57.1 ICA/CCA ratio: 1.0 LEFT: End Diastole cm/sec ----- Left CCA: 19.2 ----- Left ICA: 29.8 ----- Left ECA: 5.1 VERTEBRALS (direction of flow): Right Vertebral: Antegrade Left Vertebral: Antegrade Rhythm: Normal No significant stenosis IMPRESSION: No evidence for hemodynamically significant stenosis. Criteria for Assigning % of Stenosis / Diameter reduction (Estimation based on the indirect measurements of the internal carotid artery velocities (ICA PSV). 1. Normal (no stenosis)=ICA PSV < 125 cm/s: ratio < 2.0: ICA EDV<40 cm/s. 2. Less than 50% stenosis=ICA PSV < 125 cm/s: ratio < 2.0: ICA EDV<40 cm/s. 3. 50 to 69% stenosis=ICA PSV of 125 to 230 cm/s: ration 2.0 ? 4.0: ICA EDV 40-100 cm/s. 4. Greater than 70% stenosis to near occlusion= ICA PSV > 230 cm/s: ratio > 4.0: ICA EDV > 100 cm/s. 5. Near occlusion= ICA PSV velocities may be low or undetectable: variable ratio and ICA EDV. 6. Total occlusion=unable to detect flow.
== END | disposition home or self-care (01) ==
LOC: RADUSWWP 10:36
PROVIDERS: ATTEND Internal Medicine
DX: I65.23 Occlusion and stenosis of bilateral carotid arteries (principal)
CPT/HCPCS: 93880

== ENCOUNTER → 2023-02-09 | Outpatient (CLI) | payer MEDICARE ==
--- NOTE | 2023-02-09 12:32 | MR ---
EXAMINATION TYPE: MR brain wo/w con DATE OF EXAM: 02/09/2023 11:56 AM CLINICAL INDICATION:Male, 77 years old with history of n, lt facial numbness COMPARISON: CT brain 05/26/2010 TECHNIQUE: Multi planar, multi sequence imaging was performed through the brain including: T1, T2, In version recovery, susceptibility weighted imaging and gradient echo imaging and Diffusion weighted im aging. The patient was then given intravenous contrast and multi planar, T1 fat-saturation images wer e obtained. IV Contrast: 9 cc Gadavist FINDINGS: Mild cerebral atrophy with proportional dilation of ventricular system. Diffusion-weighted imaging s hows no evidence of restricted diffusion to suggest acute/subacute infarct. Intracranial arterial briseida w voids are maintained. Midline structures show no abnormality. Scattered foci of high T2 signal inte nsity are seen within the periventricular white matter. The susceptibility weighted images do not rev eal any evidence for micro-hemorrhage. After administration of gadolinium, no abnormal enhancement is seen. No definitive abnormal enhancement within the facial nerve on this non-temporal bone MRI techn ique scan. The bone marrow signal is within normal limits. Paranasal sinuses and mastoid air cells: No significant paranasal sinus disease. Visualized orbits: Orbital contents are intact. IMPRESSION: 1. No evidence of intracranial mass, acute/subacute infarct, or abnormal enhancement. No definitive a bnormal enhancement within the facial nerve on this non-temporal bone MRI technique scan. 2. Nonspecific white matter changes, likely related to small vessel ischemic disease 3. Mild cerebral atrophy changes with proportional dilation of the ventricles.
== END | disposition home or self-care (01) ==
LOC: RADMRIMAIN 10:13
PROVIDERS: ATTEND Internal Medicine
DX: G93.89 Other specified disorders of brain (principal); G31.1 Senile degeneration of brain, not elsewhere classified; R20.0 Anesthesia of skin
CPT/HCPCS: 70553; A9585

== ENCOUNTER 2023-08-25 06:53 | Day surgery (SDC) | payer MEDICARE ==
[~2023-08-25 06:53] MED LIST changes: -ACETAMINOPHEN TAB 500 MG TAB PO STA; -DEXAMETHASONE SOD PHOSPHATE 10 MG/ML 1 ML VIAL IV ONE; -GABAPENTIN 300 MG CAP PO STA; -HEPARIN SODIUM,PORCINE 5,000 UNIT/ML 1 ML VIAL SQ ONE; -HYDROmorphone 0.5 MG/0.5 ML SYRINGE IVP PRN; -INDOCYANINE GREEN 25 MG VIAL IV STA; -LACTATED RINGERS 1,000 ML IV SCH; +LIDOCAINE 1% (10MG/ML) FOR IV START INTRADERMA PRN; -ONDANSETRON 4 MG/2 ML VIAL IVP ONE; -SCOPOLAMINE 1.5MG/72HR PATCH TRANSDERM ONE; -TAMSULOSIN 0.4 MG CAP.ER.24H PO STA
[2023-08-25] MEDS: LACTATED RINGERS 1,000 ML IV SCH (07:24)
[2023-08-25] MEDS ORDERED: PROPOFOL 10 MG/ML 20 ML VIAL IV ONE (08:04)
--- NOTE | 2023-08-25 08:23 | P.PCN ---
Date of Procedure: 08/25/23 Procedure(s) Performed: BRIEF HISTORY: Patient is a 77-year-old pleasant white male scheduled for an elective colonoscopy as a part of screening for colon cancer. PROCEDURE PERFORMED: Colonoscopy. PREOPERATIVE DIAGNOSIS: Screening for colon cancer. IV sedation per Anesthesia. PROCEDURE: After informed consent was obtained, the patient, was brought into the endoscopy unit. IV sedation was administered by Anesthesia under continuous monitoring. Digital rectal examination was normal. Initially the Olympus CF-160 flexible video colonoscope was then inserted in the rectum, gradually advanced into the cecum without any difficulty. Careful examination was performed as the scope was gradually being withdrawn. Ileocecal valve and the appendiceal orifice were visualized and appeared normal. Prep was excellent. Mucosa of the cecum, ascending colon, transverse colon, descending colon, sigmoid colon, and rectum appeared normal. Left-sided diverticulosis seen. Retroflexion was performed in the rectum and no lesions were seen. The patient tolerated the procedure well. IMPRESSION: Normal-appearing colon from rectum to cecum with no evidence of colorectal neoplasia. Scattered left-sided diverticulosis. RECOMMENDATIONS: Findings of this examination were discussed with the patient as well as his family. He was advised to be on a high-fiber diet and take fiber supplements as needed..
[2023-08-25 08:24] VITALS: RESP 16; TEMP 98
[2023-08-25 10:17] VITALS: BP 120/75; PULSE 69
== END 2023-08-25 09:23 | disposition home or self-care (01) ==
LOC: ORWHC2ENDO 06:53
PROVIDERS: ATTEND Internal Medicine Gastroenterology
DX: Z12.11 Encounter for screening for malignant neoplasm of colon (principal); K57.30 Diverticulosis of large intestine without perforation or abscess without bleeding; Z79.899 Other long term (current) drug therapy; I10 Essential (primary) hypertension; E78.5 Hyperlipidemia, unspecified; J45.909 Unspecified asthma, uncomplicated; E11.9 Type 2 diabetes mellitus without complications; K21.9 Gastro-esophageal reflux disease without esophagitis; Z98.890 Other specified postprocedural states
CPT/HCPCS: 45378; J2704

== ENCOUNTER → 2023-10-13 | Outpatient (CLI) | payer MEDICARE ==
--- NOTE | 2023-10-13 14:00 | US ---
EXAMINATION TYPE: US thyroid st tissue head/neck DATE OF EXAM: 10/13/2023 COMPARISON: Thyroid ultrasound 09/16/22, 03/17/2022, 09/12/2021, 03/29/2021, 03/06/2020 CLINICAL INDICATION: Male, 77 years old with history of E04.2 NONTOXIS MALTINODULAR GOITER; hx of thy roid nodules GLAND SIZE: Right Lobe: 4.9 x 1.8 x 2.0 cm Overall Parenchyma: homogeneous Left Lobe: 4.9 x 1.6 x 1.7 cm Overall Parenchyma: heterogeneous Isthmus Thickness: 0.7 cm NODULES RIGHT: # of nodules measured on right: 2 1. 0.9 X 0.9 x 0.8 cm, mid mid, solid or almost completely solid, isoechoic nodule, which is wider than tall, with ill-defined margins, without echogenic foci. TR 3. Prior size: 0.6 x 0.6 x 0.5 cm 2. 1.9 X 1.7 x 1.6 cm, lower mid, cystic or almost completely cystic, anechoic nodule, which is wid er than tall, with lobulated or irregular margins, without echogenic foci. TR 2. Prior size: 1.6 x 1.5 x 1.3 cm LEFT: # of nodules measured on left: 1 1. 0.9 X 0.8 x 0.5 cm, upper mid, solid or almost completely solid, isoechoic nodule, which is wide r than tall, with ill-defined margins, without echogenic foci. TR 3. Prior size: 0.6 x 0.5 x 0.6 cm ISTHMUS: # of nodules measured in the isthmus: 1 1. 1.7 X 1.3 x 1.0 cm cystic or almost completely cystic, anechoic nodule, which is wider than tall , with lobulated or irregular margins, without echogenic foci. TR 1. Prior size: 1.6 x 1.5 x 0.9 cm Bilateral neck scanned, no evidence of lymphadenopathy. IMPRESSION: Multinodular goiter redemonstrated with a few nodules demonstrated marginal increase in size. None me et threshold for FNA at this time. ACR TI-RADS LEVEL: TR-RADS 3 - Mildly Suspicious: Follow if > 1.5 cm, FNA if > 2.5 cm *Highest TI-RADS level nodule reported
[2023-10-13 19:12] LABS: T4, Free (Free Thyroxine) 1.46 ng/dL (0.80-1.80)
== END | disposition home or self-care (01) ==
LOC: RADUSWWP 12:04
PROVIDERS: ATTEND Internal Medicine Endocrinology, Diabetes & Metabolism
DX: E04.2 Nontoxic multinodular goiter (principal)
CPT/HCPCS: 76536; 84439; 84443

== ENCOUNTER → 2024-03-11 | Outpatient (CLI) | payer MEDICARE ==
[2024-03-11 08:38] LABS: African American GFR (CKD) 79 (>60 ml/min/1.73 sqM); Blood Urea Nitrogen 19 mg/dL (9-20); Non-African American GFR(CKD) 69 (>60 ml/min/1.73 sqM)
--- NOTE | 2024-03-11 12:53 | CT ---
EXAMINATION TYPE: CT soft tissue neck w con CT DLP: 668 mGycm, Automated exposure control for dose reduction was used. DATE OF EXAM: 03/11/2024 8:58 AM COMPARISON: Multiple thyroid ultrasounds with most recent 10/13/2023 CLINICAL INDICATION:Male, 78 years old with history of R49.0 HOARSENESS; PHH, HOARSENESS IN NECK TECHNIQUE: Standard enhanced CT of the neck following intravenous administration of 100 cc of Isovue 300. Axial sections with coronal and sagittal reformats were obtained. FINDINGS: Brain: Visualized portions are grossly unremarkable. Orbits: Bilateral aphakia. Sinuses: Grossly unremarkable. Suprahyoid Neck: The oropharynx, oral cavity, parapharyngeal and retropharyngeal spaces are clear and symmetric. The nasopharynx is unremarkable. Infrahyoid Neck: The larynx, hypopharynx, and supraglottic area are clear and symmetric. Parotid Glands: Unremarkable. Submandibular Glands: Unremarkable. Musculoskeletal: Degenerative disc disease changes of the visualized spine are present. Lymph nodes: No enlarged lymph nodes identified. Vascular structures: Mild to moderate atherosclerotic plaque bilateral carotid bifurcations with appr oximately 50% stenosis at the origin of the left internal carotid artery secondary to calcified and n oncalcified plaque. No significant stenosis of the right carotid bifurcation. Poor visualization of t he proximal left vertebral artery. The right vertebral artery is patent. Thoracic Inlet/airway: Airway is patent. The lung apices are clear. Soft tissues/Thyroid: Couple of hypodense thyroid nodules identified with largest within the right th yroid lobe measuring up to 1.9 cm. Other: none. IMPRESSION 1. No CT evidence to explain patient's symptomology. 2. Multinodular thyroid gland as seen on prior thyroid ultrasounds. 3. At least 50% stenosis at the origin left internal carotid artery secondary to calcified and noncal cified plaque. Poor visualization of the proximal left vertebral artery which may be occluded versus hypoplastic. Consider further evaluation with CTA neck as clinically indicated. [facility], , 03/11/2024 12:51 PM
== END | disposition home or self-care (01) ==
LOC: RADCTMAIN 08:04
PROVIDERS: ATTEND Internal Medicine
DX: R49.0 Dysphonia (principal); E04.2 Nontoxic multinodular goiter
CPT/HCPCS: 82565; 84520; 70491; 36415; Q9967

== ENCOUNTER → 2024-04-07 | Outpatient (CLI) | payer MEDICARE ==
[2024-04-07 10:29] LABS: African American GFR (CKD) 77 (>60 ml/min/1.73 sqM); Blood Urea Nitrogen 25 mg/dL (9-20); Non-African American GFR(CKD) 66 (>60 ml/min/1.73 sqM)
--- NOTE | 2024-04-07 12:02 | CT ---
EXAMINATION TYPE: CT angio head neck DATE OF EXAM: 04/07/2024 COMPARISON: CLINICAL INDICATION: Male, 78 years old with history of I65.23 carotid stenosis; [facility], TECHNIQUE: CTA scan of the head and neck is following IV contrast material. The exam was performed a ccording to department CT protocol. Three-dimensional reconstructions and MIPS images were generated and reviewed. 3-D processing was performed. Automated exposure control for dose reduction was used. NASCET criteria was used in interpretation of this exam? FINDINGS: The brachiocephalic origins are widely patent and no significant stenosis. There is moderate eccentric calcified plaque involving the bilateral carotid bifurcations resulting i n mild stenosis of the proximal left internal carotid artery and no stenosis of the proximal right in ternal carotid artery. The right vertebral artery is widely patent and dominant. The left vertebral artery is markedly dimin utive. Intracranially, there is no stenosis, segmental occlusion, sizable aneurysm sac or vascular malformat ion. IMPRESSION:. 1. Moderate calcified plaque involving the bilateral carotid bifurcations resulting in mild proximal left internal carotid artery stenosis. No significant right internal carotid artery stenosis. 2. right ventricular artery markedly dominant. The left ureter artery is markedly diminutive. 3. No occlusive disease intracranially. NASCET criteria was used in interpretation of this exam? [facility], , 04/07/2024 12:00 PM
== END | disposition home or self-care (01) ==
LOC: RADCTMAIN 09:43
PROVIDERS: ATTEND Internal Medicine
DX: I65.23 Occlusion and stenosis of bilateral carotid arteries (principal)
CPT/HCPCS: 82565; 84520; 70496; 70498; 36415; Q9967

== ENCOUNTER → 2024-04-12 | Outpatient (CLI) | payer MEDICARE ==
--- NOTE | 2024-04-12 09:03 | US ---
EXAMINATION TYPE: US thyroid st tissue head/neck DATE OF EXAM: 04/12/2024 COMPARISON: Multiple thyroid ultrasounds most recent 10/13/2023 CLINICAL INDICATION: Male, 78 years old with history of E04.2 GOITER; thyroid nodules TECHNIQUE: Grayscale and color Doppler imaging of the thyroid gland. FINDINGS: GLAND SIZE: Right Lobe: 5.6 x 2.2 x 2.4 cm Overall Parenchyma: homogeneous Left Lobe: 5.0 x 1.8 x 1.5 cm Overall Parenchyma: homogeneous Isthmus Thickness: .7 cm NODULES RIGHT: # of nodules measured on right: 2 1. 1.1 X .9 x 1.1 cm, mid , solid or almost completely solid, hypoechoic nodule, which is wider angela n tall, with smooth margins, without echogenic foci. TR 4. Prior size: .9 x .9 x .8 cm 2. 2.0 X 1.5 x 2.2 cm, lower medial, mixed cystic and solid, anechoic nodule, which is wider than t all, with smooth margins, without echogenic foci. TR 1. Prior size: 1.7 x 1.9 x 1.6 cm LEFT: # of nodules measured on left: multiple subcentimeter measured largest one. 1. .9 X .6 x .9 cm, upper lateral, solid or almost completely solid, hypoechoic nodule, which is wi forest than tall, with smooth margins, without echogenic foci. TR 4. Prior size: .9 x .8 x .5 cm ISTHMUS: # of nodules measured in the isthmus: 1 1. 1.2 X .8 x 1.8 cm mixed cystic and solid, anechoic nodule, which is wider than tall, with smooth margins, without echogenic foci. TR 1. Prior size: 1.3 x .9 x 1.7 cm Bilateral neck scanned, no evidence of lymphadenopathy. IMPRESSION: 1. Enlarged multinodular thyroid gland with marginal increase in size of 1.1 cm right thyroid lobe T R 4 nodule, previously 0.9 cm. Follow up ultrasound in one year is recommended. 2. Mild increase in size of right thyroid lobe 2.0 cm TR 1 nodule. 3. Remaining thyroid nodules are relatively stable in size from prior exam. ACR TI-RADS LEVEL: TR-RADS 4: Follow if > 1 cm, FNA if > 1.5 cm *Highest TI-RADS level nodule reported [facility], , 04/12/2024 9:01 AM
== END | disposition home or self-care (01) ==
LOC: RADUSWWP 08:26
PROVIDERS: ATTEND Internal Medicine Endocrinology, Diabetes & Metabolism
DX: E04.2 Nontoxic multinodular goiter (principal)
CPT/HCPCS: 76536

== ENCOUNTER → 2024-07-22 | Outpatient (CLI) | payer MEDICARE ==
--- NOTE | 2024-07-23 22:10 | MR ---
EXAMINATION TYPE: MR brain wo/w con DATE OF EXAM: 07/22/2024 3:02 PM COMPARISON: None. CLINICAL INDICATION: Male, 78 years old with history of TIA, TIA TECHNIQUE: Multiplanar, multiecho imaging on a 3.0 Princess magnet is performed through the brain. Stud y is performed within 24 hours of arrival to the hospital.Multiplanar, multiecho imaging on a 3.0 Christen la magnet is performed through the knee. IV Contrast: 8 mL Gadobutrol (None, if empty) FINDINGS: The craniovertebral junction is normal. The pituitary is normal. Diffusion-weighted imaging is performed. No abnormal hyperintensity is present to suggest an acute i ntracranial infarct or acute ischemic change. There are scattered punctate areas of hyperintensity on T2 and Inversion Recovery weighted sequences which are non-specific but can be related to microvascular ischemic changes. Ventricles and sulci are prominent for the patient age. No abnormal enhancement is evident. Mucosal thickening is within the right maxillary sinus. IMPRESSION: 1. Atrophy. 2. No suspicious acute ischemic changes. 3. No suspicious chronic ischemic changes [facility], , 07/23/2024 10:08 PM
== END | disposition home or self-care (01) ==
LOC: RADMRIMAIN 13:03
PROVIDERS: ATTEND Internal Medicine
DX: G45.9 Transient cerebral ischemic attack, unspecified (principal); G31.9 Degenerative disease of nervous system, unspecified
CPT/HCPCS: 70553; A9585

== ENCOUNTER → 2024-10-19 | Outpatient (CLI) | payer MEDICARE ==
--- NOTE | 2024-10-19 15:56 | US ---
EXAMINATION TYPE: US thyroid st tissue head/neck DATE OF EXAM: 10/19/2024 COMPARISON: 04/12/2024 CLINICAL INDICATION: Male, 78 years old with history of E04.2 NONTOXIC MULTINODULAR GOITER; TECHNIQUE: Grayscale and color Doppler imaging of the thyroid gland. FINDINGS: GLAND SIZE: Right Lobe: 5.0x1.9x2.3 cm Overall Parenchyma: heterogeneous Left Lobe: 4.5x2.0x1.8 cm Overall Parenchyma: heterogeneous Isthmus Thickness: 0.4 cm NODULES RIGHT: # of nodules measured on right: 2 1. 1.8 X 1.6 x 2.0 cm, mid mid, Prior size: 2.2 x 1.5 x 2.2 cm TIRADS Score: 0 TIRADS Category 1: Benign Composition: Cystic or almost completely cystic (0 points). Recommendation: No FNA 2. 0.7 X 1.4 x 0.8 cm, mid lateral, Prior size: 1.1 x 0.9 x 1.1 cm TIRADS Score: 0 TIRADS Category 1: Benign Composition: Spongiform (0 points). Recommendation: No FNA LEFT: # of nodules measured on left: 1 1. 1.0 X 0.7 x 0.8 cm, lower mid, Prior size: 0.9 x 0.6 x 0.9 cm TIRADS Score: 3 TIRADS Category 3: Composition: Solid or almost completely solid (2 points). Echogenicity: Hyperechoic or isoechoic (1 point). Shape: Wider than tall (0 points). Margin: Smooth (0 points). Echogenic foci: None or large comet-tail artifacts (0 points) Recommendation: If >2.5cm: FNA; If >1.5cm: Follow up at 1,3,5 years ISTHMUS: # of nodules measured in the isthmus: 0 Bilateral neck scanned, no evidence of lymphadenopathy. IMPRESSION: Thyroid nodules that meet criteria for follow-up. Highest TI-RADS level nodule reported: 2017 ACR TI-RADS LEVEL: TI-RADS 3 - Mildly Suspicious: Follow if > 1.5 cm, FNA if > 2.5 cm TI-RADS assessment score and recommendation for follow-up based on appropriate scoring and treatment protocols. TR1 Benign No FNA TR2 Not suspicious No FNA TR3: If nodule size is ? 2.5 cm, FNA is recommended. If nodule size is ? 1.5 cm, follow-up imaging at 1, 3, and 5 years is recommended. TR4: If nodule size is ? 1.5 cm, FNA is recommended. If nodule size is ? 1.0 cm, follow-up imaging at 1, 2, 3, and 5 years is recommended. TR5: If nodule size is ? 1.0 cm, FNA is recommended. If nodule size is ? 0.5 cm, annual follow-up for up to 5 years is recommended. TR 1 thyroid nodules have a 0.3 % risk of malignancy. TR 2 thyroid nodules have a 1.5 % risk of malignancy. TR 3 thyroid nodules have a 4.8 % risk of malignancy. TR 4 thyroid nodules have a 9.1 % risk of malignancy. TR 5 thyroid nodules have a 35 % risk of malignancy. [email or web address] [facility], , 10/19/2024 3:53 PM
[2024-10-19 19:49] LABS: T4, Free (Free Thyroxine) 1.49 ng/dL (0.80-1.80)
== END | disposition home or self-care (01) ==
LOC: RADUSWWP 14:57
PROVIDERS: ATTEND Internal Medicine Endocrinology, Diabetes & Metabolism
DX: E04.2 Nontoxic multinodular goiter (principal)
CPT/HCPCS: 76536; 84439; 84443